=== PATIENT | female | born 1965 | race Caucasian/White ===

== ENCOUNTER 2020-03-30 12:38 | Emergency (ER) | payer MEDICARE, MEDICAID, SELFPAY ==
[2020-03-30 12:59] VITALS: BP 125/75; PULSE 60; RESP 16; TEMP 36.9; O2SAT 100; BMI 19.8
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
[2020-03-30 13:38] VITALS: BP 119/78; PULSE 63; RESP 16; O2SAT 99
[2020-03-30] MEDS: HYDROcodone-acetaminophen 7.5-325 mg Tablet 1 TAB PO (13:38)
[2020-03-30] MEDS: ketorolac 60 mg/2 mL INJ IM (13:39)
[2020-03-30 14:54] VITALS: BP 138/76; PULSE 55; RESP 16; O2SAT 100
== END 2020-03-30 15:13 | disposition home or self-care (01) ==
PROVIDERS: Emergency Provider Nurse Practitioner Family
DX: M54.5 Low back pain (principal)
CPT/HCPCS: 12345; 72131; 96372; 99281; 99283; J1885

== ENCOUNTER → 2020-05-18 09:21 | Outpatient (BNVA) | payer MEDICARE, MEDICAID, SELFPAY | PROVIDERS: Visit Provider Nurse Practitioner | DX: F41.9 Anxiety disorder, unspecified (principal); E03.9 Hypothyroidism, unspecified; R53.83 Other fatigue; E55.9 Vitamin D deficiency, unspecified | CPT/HCPCS: 80053; 80061; 81000; 82306; 82607; 84439; 84443; 84481; 85025; 86140 ==

== ENCOUNTER 2020-06-28 08:37 | Outpatient (CLI) | payer MEDICARE, MEDICAID, SELFPAY ==
--- NOTE | 2020-06-28 10:00 | CT_ITS ---
WS: [id number] CT ABDOMEN AND PELVIS NONCONTRAST HISTORY: increased AST and ALT TECHNIQUE: Imaging performed through the abdomen and pelvis. Coronal and sagittal reformats are submi tted. All CT scans at [facility] use at least one of these dose optimization techniques: automated exposure control; mA and/or kV adjustment per patient size (includes targeted exams where d ose is matched to clinical indication); or iterative reconstruction. DLP: 205.68 mGy.cm COMPARISON: 12/20/2008 Lower thorax: Lung bases are clear. Normal heart. Oral contrast present in the distal esophagus. Liver: Mild hepatic steatosis. No nodules. Liver is also mildly enlarged which may be a Indira's lobe as it extends nearly to the iliac crest. No bile duct dilatation. Gallbladder: Normal gallbladder. Pancreas: Normal size and attenuation. Normal pancreatic duct. No pancreatitis or mass. Spleen: Normal. Adrenal glands: Normal. No mass. Right kidney: Normal size kidney with no mass or hydronephrosis. Left kidney: Normal size kidney with no mass or hydronephrosis. Aorta: Mild atherosclerosis abdominal aorta with no aneurysm. No free fluid, intraperitoneal air or significant lymphadenopathy. GI tract: Mild diffuse constipation. No obstruction. The appendix is poorly visualized. There is no e vidence for appendicitis. No significant diverticular disease. Abdominal wall: Negative. No hernia. Pelvis: Normal. Osseous structures: L4 anterolisthesis by 9.7 mm with facet joint arthritis. Severe disc space narrow ing and desiccation at L4-5. CT/CT abdomen pelvis wo con [id number] IMPRESSION: 1. Moderate constipation. No obstruction or acute inflammatory process. 2. No renal stones or obstructions. 3. Severe degenerative disc disease at L4-5 with L4 anterolisthesis by 9.7 mm.
--- NOTE | 2020-06-28 11:00 | US_ITS ---
WS: [id number] THYROID ULTRASOUND HISTORY: hypothyroid COMPARISON: None available. Right lobe: 1.5 cm x 0.5 cm x 0.5 cm. Volume: 0.2 cm3. Very small hypoechoic thyroid. No nodule. Left lobe: 2.1 cm x 0.4 cm x 0.6 cm. Volume: 0.2 cm3. Very small hypoechoic thyroid. No nodules. Isthmus: 0.2 cm. US/US thyroid [id number] IMPRESSION: Small shrunken thyroid. Consistent with diagnosis of hypothyroidism. No nodules identified.
== END 2020-06-28 08:38 | disposition home or self-care (01) ==
PROVIDERS: PCP Nurse Practitioner; Visit Provider Nurse Practitioner
DX: E03.9 Hypothyroidism, unspecified (principal); R63.4 Abnormal weight loss; K59.00 Constipation, unspecified; M51.36 Other intervertebral disc degeneration, lumbar region
CPT/HCPCS: 74176; 76536

== ENCOUNTER → 2020-09-19 14:00 | Outpatient (BNVA) | payer MEDICARE, MEDICAID, SELFPAY | PROVIDERS: PCP Nurse Practitioner; Visit Provider Nurse Practitioner Family | DX: E03.9 Hypothyroidism, unspecified (principal) | CPT/HCPCS: 84439; 84443; 84481 ==

== ENCOUNTER → 2020-12-22 14:20 | Outpatient (BNVA) | payer MEDICARE, MEDICAID, SELFPAY | PROVIDERS: PCP Nurse Practitioner; Visit Provider Nurse Practitioner | DX: E03.9 Hypothyroidism, unspecified (principal); E55.9 Vitamin D deficiency, unspecified; N95.2 Postmenopausal atrophic vaginitis | CPT/HCPCS: 80053; 80061; 82306; 84439; 84443; 84481; 85025 ==

== ENCOUNTER 2021-02-15 13:00 | Outpatient (CLI) | payer MEDICARE, MEDICAID, SELFPAY ==
--- NOTE | 2021-02-15 13:30 | MM_ITS ---
WS: [id number] BILATERAL DIGITAL SCREENING MAMMOGRAPHY WITH CAD CLINICAL INFORMATION: Z12.39 - Encounter for other screening for malignant neoplasm of breast HISTORY: Screening mammogram. No current complaints. COMPARISON: December 03, 2008 TECHNIQUE: Bilateral CC and MLO views. FINDINGS: The breasts are composed of heterogeneous fibroglandular density tissue, which can limit the detectio n of small underlying mass lesions. No suspicious mass, asymmetry, calcifications, or architectural d istortion. No evidence of malignancy. MM/[place] [id number] IMPRESSION: BI-RADS: 1-Negative FOLLOW UP: 1 Year Follow-up Recommend return to annual screening mammography.
--- NOTE | 2021-02-15 13:57 | XR_ITS ---
WS: [id number] DEXA (DUAL ENERGY X-RAY ABSORPTIOMETRY) Bone mineral density was performed using a [employer] machine. HISTORY: Z78.0 - Asymptomatic menopausal state COMPARISON: None available. Lumbar spine BMD (L1-L4): 0.922 g/cm2 T score: -2.2 Z score: -0.6 Total hip BMD: Left: 0.830 g/cm2. T score: -1.4 Z score: -0.2 Right: 0.851 g/cm2. T score: -1.2 Z score: 0.0 10 year probability of a major osteoporotic fracture is 7%. Mild curvature lumbar spine. XR/XR DEXA axial skeleton* [id number] IMPRESSION: OSTEOPENIA based upon the WHO classification for females.
== END 2021-02-15 13:01 | disposition home or self-care (01) ==
LOC: RADSHAW 13:03
PROVIDERS: PCP Nurse Practitioner; Visit Provider Nurse Practitioner
DX: Z12.31 Encounter for screening mammogram for malignant neoplasm of breast (principal); Z78.0 Asymptomatic menopausal state; M85.89 Other specified disorders of bone density and structure, multiple sites
CPT/HCPCS: 77067; 77080

== ENCOUNTER → 2021-06-19 11:17 | Outpatient (BNVA) | payer MEDICARE, MEDICAID, SELFPAY | PROVIDERS: PCP Nurse Practitioner; Visit Provider Nurse Practitioner | DX: E03.9 Hypothyroidism, unspecified (principal); E07.9 Disorder of thyroid, unspecified | CPT/HCPCS: 80053; 84439; 84443; 84481; 85025 ==

== ENCOUNTER → 2021-11-15 11:45 | Outpatient (BNVA) | payer MEDICARE, MEDICAID, SELFPAY | PROVIDERS: PCP Nurse Practitioner; Visit Provider Nurse Practitioner | DX: E03.9 Hypothyroidism, unspecified (principal); R53.83 Other fatigue | CPT/HCPCS: 80053; 84439; 84443; 84481; 85025 ==

== ENCOUNTER → 2022-03-21 16:35 | Outpatient (BNVA) | payer MEDICARE, MEDICAID, SELFPAY | PROVIDERS: PCP Nurse Practitioner; Visit Provider Nurse Practitioner | DX: E03.9 Hypothyroidism, unspecified (principal); E78.2 Mixed hyperlipidemia; R13.10 Dysphagia, unspecified; Z86.79 Personal history of other diseases of the circulatory system; R63.4 Abnormal weight loss | CPT/HCPCS: 80053; 80061; 83721; 84439; 84443; 84481; 85025 ==

== ENCOUNTER → 2022-05-08 13:19 | Outpatient (BNVA) | payer MEDICARE, MEDICAID, SELFPAY | PROVIDERS: PCP Family Medicine; Referring Provider Otolaryngology; Visit Provider Internal Medicine | DX: E03.9 Hypothyroidism, unspecified (principal); E78.2 Mixed hyperlipidemia; N95.1 Menopausal and female climacteric states; Z86.79 Personal history of other diseases of the circulatory system | CPT/HCPCS: 99204 ==

== ENCOUNTER 2022-05-18 08:49 | Outpatient (CLI) | payer MEDICARE, MEDICAID, SELFPAY ==
--- NOTE | 2022-05-18 08:59 | CT_ITS ---
WS: [id number] CT NECK WITH CONTRAST HISTORY: PAIN IN THROAT, DYSPHAGIA, OROPHARYNGEAL PHASE, abnormal WT LOSS TECHNIQUE: Contiguous 5 mm axial images are performed through the neck with intravenous contrast. Sag ittal and coronal reformats are also submitted. All CT scans at [facility] use at least one o f these dose optimization techniques: automated exposure control; mA and/or kV adjustment per patient size (includes targeted exams where dose is matched to clinical indication); or iterative reconstruc tion. CONTRAST: CONTRAST: Omnipaque 350; 75 mL IV. DLP: 157.36 mGy.cm COMPARISON: None available. Nasopharynx, oropharynx, hypopharynx and larynx are unremarkable. No soft tissue masses or abnormal e nhancement. Torus tubarius and fossa of Rosenmuller and parapharyngeal fat are normal. No significant lymphadenopathy is identified. 0 No osseous abnormalities. Visualized portions of the skull base demonstrate no abnormalities. Orbits and globes are within norm al limits. No soft tissue masses. Visualized paranasal sinuses and mastoid air cells are normal. Lung apices are clear. CT/CT neck w con* [id number] IMPRESSION: Unremarkable neck CT. No neck mass or adenopathy.
--- NOTE | 2022-05-18 08:59 | FL_ITS ---
WS: [id number] Exam: FL barium swallow [id number] Date/Time of Exam: 05/18/2022 9:18 AM Reason For Exam: PAIN IN THROAT, DYSPHAGIA, OROPHARYNGEAL PHASE, ABN WT LOSS Fluoroscopy time: 1min 31.700612ldp minutes # of spot films: 9 Swallowing function at the level of oropharynx was normal. The esophagus is smooth in contour. No eso phageal mass or stricture. Normal motility. The esophagus is not displaced. No hiatal hernia. No obvi ous reflux identified during fluoroscopy. FL/FL barium swallow [id number] IMPRESSION: 1. Unremarkable barium swallow.
[2022-05-18] MEDS: iohexol 350 mg/mL 100 mL Btl IV (09:11)
== END 2022-05-18 08:50 | disposition home or self-care (01) ==
LOC: RAD 08:50
PROVIDERS: PCP Family Medicine; Visit Provider Otolaryngology
DX: R07.0 Pain in throat (principal); R13.12 Dysphagia, oropharyngeal phase; R63.4 Abnormal weight loss
CPT/HCPCS: 70491; 74220

== ENCOUNTER → 2022-05-22 13:07 | Outpatient (BNVA) | payer MEDICARE, MEDICAID, SELFPAY | PROVIDERS: PCP Family Medicine; Visit Provider Internal Medicine Cardiovascular Disease | DX: R07.9 Chest pain, unspecified (principal); E78.2 Mixed hyperlipidemia; K21.9 Gastro-esophageal reflux disease without esophagitis; I20.9 Angina pectoris, unspecified; J38.1 Polyp of vocal cord and larynx; E03.9 Hypothyroidism, unspecified; F41.9 Anxiety disorder, unspecified; Z87.891 Personal history of nicotine dependence | CPT/HCPCS: 99204 ==

== ENCOUNTER → 2022-06-05 13:12 | Outpatient (BNVA) | payer MEDICARE, MEDICAID, SELFPAY | PROVIDERS: PCP Family Medicine; Visit Provider Specialist | DX: R07.0 Pain in throat (principal); R13.12 Dysphagia, oropharyngeal phase | CPT/HCPCS: 80048; 85025 ==

== ENCOUNTER → 2022-07-02 14:58 | Outpatient (BNVA) | payer MEDICARE, MEDICAID, SELFPAY | PROVIDERS: PCP Family Medicine; Visit Provider Internal Medicine | DX: R63.0 Anorexia (principal); E03.9 Hypothyroidism, unspecified; E78.2 Mixed hyperlipidemia; N95.1 Menopausal and female climacteric states; A04.8 Other specified bacterial intestinal infections; Z86.79 Personal history of other diseases of the circulatory system; Z87.891 Personal history of nicotine dependence; Z68.1 Body mass index [BMI] 19.9 or less, adult | CPT/HCPCS: 99214 ==

== ENCOUNTER 2022-07-25 08:58 | Outpatient (CLI) | payer MEDICARE, MEDICAID, SELFPAY ==
--- NOTE | 2022-07-25 | ECG_ITS ---
[facility] Test Date: 2022-07-25 Pat Name: Sulema Castillo Department: Room: Gender: Female Advertising Internship: : 1965 Requested By: Yen Ryan Order Number: [id number] Qamar MD: Yen Ryan M.D. Interpretive Statements NAME OF STUDY: EXERCISE SESTAMIBI STRESS TEST INDICATION: Chest Pain; Family hx of CAD Baseline blood pressure of 132/91 mm Hg, heart rate of 55 beats per minute and oxygen saturation of 96%. EKG showed sinus bradycardia with normal ST-Ts. The patient exercised for 8 minutes and 30 seconds on a [standard [facility] protocol]. Patient attained a maximum heart rate of 141 beats per minute( 87 % of the maximum predicted heart rate) with a blood pressure at the peak exercise of 173/84 mm Hg and oxygen saturation of 98%. The EKG at the peak exercise revealed 1/2-[address] depression in infero-lateral leads. Patient did [not have any chest pain or any significant arrhythmis with the exercise. During the recovery phase, there were no new changes. Blood pressure at the end of the recovery phase was 150/75 mm Hg with a heart rate of 71 beats per minute and oxygen saturation of 98%. CONCLUSION: 1. Equivocal EKG response to treadmill exercise. EKG at the peak exercise revealed 1/2-[address] depression in infero-lateral leads. 2. No exercise-induced chest pain or cardiac arrhythmia. 3. Excellent exercise tolerance, attained a maximum of 10.2 METs. 4. Baseline hypertension with normal response to exercise. 5. Perfusion scan will be documented separately]. Electronically Signed On 07-30-2022 22:47:47 HARDWARE ENGINEER by Yen Ryan M.D. [id number]
[2022-07-25 09:05] VITALS: BMI 19.3
--- NOTE | 2022-07-25 09:08 | NMCV_ITS ---
NM emy perf SPECT r/s* [id number] Sulema Castillo Age: 57 Gender: F : 1965 Exam Date: 07/25/2022 09:08 Ordering Phys: Yen Ryan MD ([email or web address]) Technologist: LUANA Bonilla Exam Location: [facility] Indications: CHEST PAIN STRESS TEST Please see separate stress test report in [facility] for full findings IMAGE PROTOCOL Rest/Stress 1 Exercise Day Radiopharmaceutical Dose (mCi) Administration Site Administered by Rest: Tc-99m 8.4 IV LUANA Mcgill Sestamibi Stress:Tc-99m 26.1 IV LUANA Mcgill Sestamibi Rest: 25-Jul-2022 60 Discovery 630 Stress: 25-Jul-2022 30 Discovery 630 Radiopharmaceutical was injected at 85 % maximum heart rate. Images obtained in supine and prone position. SPECT RESULTS Technical Quality: Excellent Raw Data Analysis: Normal Image Corrections: No attenuation or motion correction applied Summed Stress Score: 0 Summed Rest Score: 0 Summed Difference Score: 0 PERFUSION FINDINGS SPECT images demonstrate homogeneous tracer distribution throughout the myocardium. FUNCTIONAL RESULTS (calculated via Gated SPECT) Stress Image LV EF (%): 91 Stress EDV (mL):75 TID: 0.85 Stress ESV (mL):7 FUNCTIONAL FINDINGS: The left ventricle is normal in size. Transient Ischemia Dilatation of 0.85. There is hyperdynamic left ventricular global systolic function. The left ventricular ejection fraction is normal with a value of 91%. There is hyperdynamic left ventricular wall thickening. IMPRESSIONS 1. Myocardial perfusion imaging is normal. 2. Overall left ventricular systolic function is hyperdynamic without regional wall motion abnormalities,LVEF=91%. 3. EKG portion of the study will be reported separately. Yen Ryan MD (Electronically Signed) Final Date: 27 July 2022 12:33 S
[2022-07-25 12:06] VITALS: BP 145/84; PULSE 72
== END 2022-07-25 08:59 | disposition home or self-care (01) ==
LOC: CDL 09:02
PROVIDERS: PCP Family Medicine; Visit Provider Internal Medicine Cardiovascular Disease
DX: R07.9 Chest pain, unspecified (principal)
CPT/HCPCS: 36415; 78452; 93017; A9500

== ENCOUNTER → 2022-11-01 13:31 | Outpatient (BNVA) | payer MEDICARE, MEDICAID, SELFPAY | PROVIDERS: PCP Family Medicine; Visit Provider Internal Medicine | DX: E03.9 Hypothyroidism, unspecified (principal); E78.2 Mixed hyperlipidemia; N95.1 Menopausal and female climacteric states; A04.8 Other specified bacterial intestinal infections; Z86.79 Personal history of other diseases of the circulatory system; Z79.890 Hormone replacement therapy | CPT/HCPCS: 99214 ==

== ENCOUNTER → 2022-12-07 11:31 | Outpatient (BNVA) | payer MEDICARE, MEDICAID, SELFPAY | PROVIDERS: PCP Family Medicine; Referring Provider Internal Medicine; Visit Provider Internal Medicine | DX: E03.9 Hypothyroidism, unspecified (principal) | CPT/HCPCS: 84439; 84443 ==

== ENCOUNTER → 2022-12-12 14:39 | Outpatient (BNVA) | payer MEDICARE, MEDICAID, SELFPAY | PROVIDERS: PCP Family Medicine; Visit Provider Internal Medicine | DX: R63.0 Anorexia (principal); E03.9 Hypothyroidism, unspecified; Z86.79 Personal history of other diseases of the circulatory system; E78.2 Mixed hyperlipidemia; N95.1 Menopausal and female climacteric states; A04.8 Other specified bacterial intestinal infections; Z68.1 Body mass index [BMI] 19.9 or less, adult; Z79.890 Hormone replacement therapy | CPT/HCPCS: 99214 ==

== ENCOUNTER → 2023-01-08 15:53 | Outpatient (BNVA) | payer MEDICARE, MEDICAID, SELFPAY | PROVIDERS: PCP Family Medicine; Visit Provider Nurse Practitioner Family | DX: M79.674 Pain in right toe(s) (principal); L03.031 Cellulitis of right toe; L97.509 Non-pressure chronic ulcer of other part of unspecified foot with unspecified severity | CPT/HCPCS: 73630; 80053; 85025; 87070 ==

== ENCOUNTER 2023-01-09 08:45 | Inpatient (IN) | payer MEDICARE, MEDICAID, SELFPAY ==
[2023-01-09] VITALS (14 sets, daily range): BP systolic 98–155; BP diastolic 60–84; PULSE 64–83; RESP 15–18; TEMP 36.1–37.3; O2SAT 92–100; BMI 19.3
--- NOTE | 2023-01-09 09:46 | CT_ITS ---
WS: [id number] NONCONTRAST CT RIGHT FOOT TECHNIQUE: Noncontrast CT RIGHT foot with coronal and sagittal reformatted images. CLINICAL INFORMATION: 3rd digit, abscess, cellulitis, r/o osteo no trauma COMPARISON: None. DLP: 104.[address] scans at [facility] use at least one of these dose optimization techniques: automated e xposure control; mA and/or kV adjustment per patient size (includes targeted exams where dose is matc hed to clinical indication); or iterative reconstruction. FINDINGS: Diffuse soft tissue edema RIGHT foot compatible with cellulitis. No drainable abscess or fluid collec tion. No evidence of osteomyelitis involving the 3rd digit. No drainable abscess or fluid collection. Normal anatomic alignment. No acute fractures. Normal ankle mortise. Normal medial and lateral malleolus. Normal talar dome. CT/CT foot RT w con [id number] IMPRESSION: 1. Diffuse cellulitis involving the RIGHT foot. 2. No evidence of drainable abscess or fluid collection. No evidence of osteom yelitis involving the 3rd digit. 3. No other acute findings.
--- NOTE | 2023-01-09 09:49 | ED_ITS ---
HPI - Extremity Problem General: Chief complaint: Extremity Injury, Lower Stated complaint: right foot pain Time Seen by Provider: 01/09/23 09:36 History of Present Illness: Patient presents to the ER with complaints of right third digit toe pain. Patient states approximately 3 days ago she noticed a little red spot on the underside of this area. Patient was seen in the clinic on Saturday given a prescription for an antibiotic that she did not get filled. Patient was seen again on the clinic today for worsening swelling and pain and they sent her directly over here to be evaluated. Patient's toe is severely swollen purple and blue and exquisitely tender to the touch. MD Complaint: extremity pain (Third digit right toe pain with swelling into the foot.) Onset (ago): day(s) (3 days ago) Pain Consistency: constant Relieving factors: nothing Exacerbating factors: range of motion, weight bearing and walking Associated symptoms: Reports no associated symptoms; Deny chest pain or fever(s) Review of Systems General: Reports: 10 or more systems reviewed and unremarkable except in HPI and below Const: Denies: fever(s), chills or body aches Eyes: Denies: change in vision or photophobia ENMT: Denies: throat pain or odynophagia Card: Denies: chest pain, palpitations or irregular heart rhythm Resp: Denies: dyspnea, productive cough, non-productive cough or chest congestion GI: Denies: abdominal pain, nausea, vomiting or diarrhea : Denies: flank pain, difficulty voiding or dysuria Musc: Denies: neck pain PFSH ED PFSH: Medical History Adult hypothyroidism Anxiety Appetite absent Hearing loss of both ears History of angina Hyperlipidemia, mixed Surgical History History of section History of colonoscopy 2014 at [facility] History of ear surgery left ear cyst History of hysterectomy with Left ovary removed Family History Mother Myocardial infarction Hypertension Family/Other Hx of CABG Mother and 6 siblings all had open heart surgery Hypertension Other Cancer Heart disease Hyperlipidemia Social History Smoking and tobacco status: former smoker Second hand smoke exposure: No Smoking risk assessment/counseling performed?: No Alcohol intake: never Desire information about alcohol rehabilitation?: No Counseling given: No Substance/Drug Use: never Desire information about substance/drug rehabilitation?: No Counseling given: No Adopted: No Caregiver/support person: No Lives independently: Yes Household members: spouse Housing: House Marital status: Number of children: 2 service: No Current occupational status: disabled Do you think of yourself as: Straight/Heterosexual Current gender identity: Female Physical Exam Const: COMMON NORMALS: no acute distress, average body habitus, patient oriented x3, no limitations, healthy appearing, alert and well nourished HENMT: COMMON NORMALS: normocephalic, atraumatic, hearing grossly normal bilaterally, external ears normal, Normal external nose present and moist oral mucous membranes HEAD & SCALP: normocephalic and atraumatic NOSE: Normal external nose present EXTERNAL EAR: Yes external ears normal Eye: COMMON NORMALS: Equal, round and reactive pupils present, EOMs intact bilaterally, conjunctivae normal and no scleral icterus CONJUNCTIVA: Yes conjunctivae normal PUPIL: Yes Equal, round and reactive pupils present Neck/C-Spine: COMMON NORMALS: no JVD Chest: COMMONS NORMALS: normal inspection of the chest and normal palpation of entire chest wall Resp: COMMON NORMALS: normal respiratory effort, No retractions, No use of accessory muscles and clear to auscultation bilaterally AUSCULTATION: clear to auscultation bilaterally Cardio: COMMON NORMALS: no JVD, regular rate, regular rhythm, S1 normal heart sound present and S2 normal heart sound present RATE: regular rate RHYTHM: regular rhythm HEART SOUNDS: S1 normal heart sound present and S2 normal heart sound present GI: COMMON NORMALS: Normal to inspection, nondistended, normoactive bowel sounds present Extremity: OTHER: Right foot swollen and erythematous. Right third digit very swollen purple and blue in nature and very tender to palpate. Neuro: COMMON NORMALS: patient oriented x3 SENSORIUM/ORIENTATION: Yes alert Course Vital Signs: Vital signs: Vital Signs Temperature 98.1 F 01/09/23 09:16 Pulse Rate 74 01/09/23 09:16 Blood Pressure 155/84 01/09/23 09:16 Pulse Oximetry 97 01/09/23 09:16 Oxygen Delivery Me thod Room Air 01/09/23 09:16 MDM - Extremity (Nontraumatic) Medical Decision Making Patient presents to the ER with complaints of right third toe pain and swelling and infection. Patient seen her PCP on Saturday and then again today she did not get her antibiotics filled but her PCP sent her over here for further evaluation. Lab work was obtained which revealed a white count of 15.5 CT scan of the foot with contrast did not show any nayan abscess or osteomyelitis, just cellulitis. Patient was given a dose of clindamycin and vancomycin in the ER. Dr. Turner was consulted who agreed to accept the patient in admission for IV antibiotics. Differential Diagnosis Likely cellulitis; Unlikely herpes zoster, gout or superficial thrombophlebitis Medical Records I reviewed the patient's medical records. Lab Data I reviewed the patient's lab results. 01/09/23 10:08 01/09/23 10:[address] 01/09/23 09:46 IMPRESSION: 1. Diffuse cellulitis involving the RIGHT foot. 2. No evidence of drainable abscess or fluid collection. No evidence of osteomyelitis involving the 3rd digit. 3. No other acute findings. Laboratory Results WBC 15.5 10^3/uL (4.0-10.0) H 01/09/23 10:08 RBC 4.05 10^6/uL (4.1-5.3) L 01/09/23 10:08 Hgb 12.3 g/dL (11.5-15.3) 01/09/23 10:08 Hct 37.7 % (37.0-47.0) 01/09/23 10:08 MCV 93.1 fl (81-99) 01/09/23 10:08 MCH 30.4 pg (28.0-34.0) 01/09/23 10:08 MCHC 32.6 g/dL (30.0-36.0) 01/09/23 10:08 RDW 13.2 % (12.1-15.1) 01/09/23 10:08 Plt Count 542 10^3/cmm (130-400) H 01/09/23 10:08 MPV 8.0 fL (7.4-10.4) 01/09/23 10:08 Neut % (Auto) 82.4 % 01/09/23 10:08 Lymph % (Auto) 8.8 % 01/09/23 10:08 Ritchie % (Auto) 7.8 % 01/09/23 10:08 Eos % (Auto) 0.2 % 01/09/23 10:08 Baso % (Auto) 0.2 % 01/09/23 10:08 Neut # (Auto) 12.74 10^3/uL (1.8-7.7) H 01/09/23 10:08 Lymph # (Auto) 1.4 10^3/uL (0.8-4.8) 01/09/23 10:08 Ritchie # (Auto) 1.2 10^3/uL (0.2-0.9) H 01/09/23 10:08 Eos # (Auto) 0.0 10^3/uL (0.0-0.8) 01/09/23 10:08 Baso # (Auto) 0.0 10^3/uL (0.0-0.1) 01/09/23 10:08 Nucleated RBC % (auto) 0 % 01/09/23 10:08 Nucleated RBCs # 0.0 /100WBC 01/09/23 10:08 ESR 22 mm/hr (0-15) H 01/09/23 10:08 Sodium 135 mmol/L (136-145) L 01/09/23 10:08 Potassium 3.3 mmol/L (3.5-5.1) L 01/09/23 10:08 Chloride 91 mmol/L (98-107) L 01/09/23 10:08 Carbon Dioxide 30 mmol/L (22-29) H 01/09/23 10:08 Anion Gap 17.3 (5-19) 01/09/23 10:08 BUN 22 mg/dL (6-20) H 01/09/23 10:08 Creatinine 0.8 mg/dL (0.5-0.9) 01/09/23 10:08 GFR Calculation 73.7 mL/min (90-130) L 01/09/23 10:08 Glucose 88 mg/dL (65-115) 01/09/23 10:08 Calculated Osmolality 283 mOsm/kg (285-295) L 01/09/23 10:08 Lactate 1.6 mmol/L (0.5-2.2) 01/09/23 10:08 Calcium 9.4 mg/dL (8.5-10.5) 01/09/23 10:08 Total Bilirubin 0.3 mg/dL (0.15-1.2) 01/09/23 10:08 AST 15 U/L (0-32) 01/09/23 10:08 ALT 14 U/L (0-33) 01/09/23 10:08 Alkaline Phosphatase 84 U/L (35-105) 01/09/23 10:08 C-Reactive Protein 75.7 mg/L (0.0-4.9) H 01/09/23 10:08 Total Protein 8.2 g/dL (6.6-8.7) 01/09/23 10:08 Albumin 4.5 g/dL (3.5-5.2) 01/09/23 10:08 Globulin 3.7 g/dL (1.3-4.6) 01/09/23 10:08 Procalcitonin 0.07 ng/mL (0-0.5) 01/09/23 10:08 Discharge Plan Discharge Patient Disposition: Admitted As Inpatient Clinical Impression: Cellulitis of third toe of right foot Condition: Stable Prescriptions: No Action estradiol 0.01 % (0.1 mg/gram) cream 2 g vaginal .2 times week Qty: 42.5 2RF Ensure High Protein Liquid See Rx Instructions PO .2 times day Qty: 5688 5RF Rx Instructions: 1 PO .2 times day; hydrocodone-acetaminophen 10-325 mg tablet 1 tab PO Q8H PRN nitroglycerin 0.4 mg tablet, sublingual 0.4 mg sublingual Q5M PRN (Reason: chest pain) Qty: 30 3RF Rx Instructions: do not exceed 3 doses per episode levothyroxine 100 mcg tablet 100 mcg PO DAILY Qty: 90 0RF ketorolac 30 mg/mL solution 30 mg IM ONCE Qty: 1 0RF clindamycin HCl 300 mg capsule 300 mg PO TID Qty: 30 0RF ibuprofen 800 mg tablet 800 mg PO TID PRN (Reason: pain) Qty: 30 0RF alendronate [Fosamax] 70 mg tablet 70 mg PO .weekly Qty: 4 2RF pantoprazole 40 mg tablet,delayed release (DR/EC) 40 mg PO DAILY paroxetine HCl 40 mg tablet 40 mg PO DAILY 28 mg iron- 800 mcg Tablet 1 tab PO DAILY melatonin 10 mg Tablet 10 mg PO BEDTIME PRN (Reason: Sleep) cyclobenzaprine 10 mg tablet 10 mg PO TID PRN Rx Instructions: pt states she only takes 1 tab at bedtime Referrals: Melo Anderson Jr, DO [Primary Care Provider] - Coding Level of Care Code ED Radio Frequency Design Engineer for Lyly Ratliff
[2023-01-09 10:24] LABS: Basophils % 0.2 %; Eosinophils % 0.2 %; Hematocrit 37.7 % (37.0-47.0); Hemoglobin 12.3 g/dL (11.5-15.3); Lymphocytes # 1.4 10^3/uL (0.8-4.8); Lymphocytes % 8.8 %; Mean Corpuscular HGB Conc 32.6 g/dL (30.0-36.0); Mean Corpuscular Hemoglobin 30.4 pg (28.0-34.0); Mean Corpuscular Volume 93.1 fl (81-99); Monocytes # 1.2 10^3/uL (0.2-0.9); Monocytes % 7.8 %; Neutrophils # 12.74 10^3/uL (1.8-7.7); Neutrophils % 82.4 %; Nucleated Red Blood Cells % 0 %; Platelet Count 542 10^3/cmm (130-400); Red Blood Count 4.05 10^6/uL (4.1-5.3); Red Cell Distribution Width 13.2 % (12.1-15.1); White Blood Count 15.5 10^3/uL (4.0-10.0)
[2023-01-09 10:31] LABS: Erythrocyte Sedimentation Rate 22 mm/hr (0-15)
[2023-01-09] MEDS: ketorolac 30 mg/mL INJ IVP (10:36)
[2023-01-09] MEDS: iohexol 350 mg/mL 500 mL Btl (per mL) IV (10:40)
[2023-01-09 10:47] LABS: Alanine Aminotransferase 14 U/L (0-33); Albumin Level 4.5 g/dL (3.5-5.2); Alkaline Phosphatase 84 U/L (35-105); Anion Gap 17.3 (5-19); Aspartate Amino Transferase 15 U/L (0-32); Blood Urea Nitrogen 22 mg/dL (6-20); C Reactive Protein 75.7 mg/L (0.0-4.9); Calcium 9.4 mg/dL (8.5-10.5); Carbon Dioxide 30 mmol/L (22-29); Chloride 91 mmol/L (98-107); Globulin 3.7 g/dL (1.3-4.6); Glomerular Filtration Rate 73.7 mL/min (90-130); Glucose 88 mg/dL (65-115); Lactate (Lactic Acid level) 1.6 mmol/L (0.5-2.2); Osmolality Calculated 283 mOsm/kg (285-295); Potassium 3.3 mmol/L (3.5-5.1); Sodium 135 mmol/L (136-145); Total Bilirubin 0.3 mg/dL (0.15-1.2); Total Protein 8.2 g/dL (6.6-8.7)
[2023-01-09 10:53] LABS: Procalcitonin 0.07 ng/mL (0-0.5)
[2023-01-09] MEDS: clindamycin 600 MG/50 ML PREMIX 100 MG IV (11:23)
--- NOTE | 2023-01-09 12:16 | P.HP_ITS ---
Providers/Chief Complaint Admitting Physician: Avinash Turner MD Primary Care Provider: Melo Anderson Jr, DO Chief Complaint: right foot pain History of Present Illness Sulema Castillo is a 57 year old female presenting to the emergency department with complaints of right third toe pain, swelling, and infection. She thinks this started about Saturday. No fevers at home but has had swelling and redness, up into her foot over the last 24 hours on a great deal more pain. The toe has changed colors in the last 24 hours as well. Was seen yesterday given given prescription for antibiotic but has not yet filled it. Denies any trauma. Denies any history of heart or lung conditions, or any difficulties with surgery. Last p.o. intake around 8 AM. Review of Systems General: Reports: 10 or more systems reviewed and unremarkable except in HPI and below Const: Denies: fever(s) or chills Card: Denies: chest pain Resp: Denies: dyspnea GI: Denies: hematochezia or melena Medications/Allergies Home Medications Medication Instructions Recorded Confirmed Last Taken Type melatonin 10 mg tablet 10 mg PO BEDTIME PRN Sleep 03/30/20 01/09/23 Unknown History pantoprazole 40 mg tablet,delayed 40 mg PO DAILY 03/30/20 01/09/23 01/09/23 History release paroxetine HCl 40 mg tablet 40 mg PO BEDTIME 03/30/20 01/09/23 01/08/23 History vit no.95-ferrous 1 tab PO DAILY 03/30/20 01/09/23 01/08/23 History fumarate 28 mg-folic acid 800 mcg tablet () estradiol 0.01% (0.1 mg/gram) 2 g vaginal .2 times week #42.5 06/21/21 01/09/23 Unknown Rx vaginal cream grams cyclobenzaprine 10 mg tablet 10 mg PO TID PRN Muscle Spasm 05/22/22 01/09/23 Unknown History hydrocodone 10 mg-acetaminophen 1 tab PO Q8H PRN Pain 05/22/22 01/09/23 Unknown History 325 mg tablet nitroglycerin 0.4 mg sublingual 0.4 mg sublingual Q5M PRN chest 05/22/22 01/09/23 Unknown Rx tablet pain #30 tabs levothyroxine 100 mcg tablet 100 mcg PO DAILY #90 tabs 12/12/22 01/09/23 04/03/08 Rx alendronate 70 mg tablet (Fosamax) 70 mg PO Q7D 01/09/23 01/09/23 Unknown History food supplemt, lactose-reduced 1 ea PO BID PRN CALORIES 01/09/23 01/09/23 Unknown History (Ensure High Protein oral liquid) Allergies Allergy/AdvReac Type Severity Reaction Status Date / Time No Known Allergies Allergy Verified 01/09/23 09:21 PFSH Acute PFSH: Medical History Adult hypothyroidism Anxiety Appetite absent Hearing loss of both ears History of angina Hyperlipidemia, mixed Surgical History History of section History of colonoscopy 2013 at [facility] [place] History of ear surgery left ear cyst History of hysterectomy with Left ovary removed Family History Mother Myocardial infarction Hypertension Family/Other Hx of CABG Mother and 6 siblings all had open heart surgery Hypertension Other Cancer Heart disease Hyperlipidemia Social History Smoking and tobacco status: former smoker Second hand smoke exposure: No Smoking risk assessment/counseling performed?: No Alcohol intake: never Desire information about alcohol rehabilitation?: No Counseling given: No Substance/Drug Use: never Desire information about substance/drug rehabilitation?: No Counseling given: No Adopted: No Caregiver/support person: No Lives independently: Yes Household members: spouse Housing: House Marital status: Number of children: 2 service: No Current occupational status: disabled Do you think of yourself as: Straight/Heterosexual Current gender identity: Female Vitals/I&O/Wt Last Vital Signs Temp 98.1 F 01/09/23 09:16 Pulse 74 01/09/23 09:16 BP 155/84 01/09/23 09:16 Pulse Ox 97 01/09/23 09:16 O2 Del Method Room Air 01/09/23 09:16 Weight last 48 hrs Weight 43.545 kg Physical Exam Narrative: General exam is a conversive white female in no distress HEENT: Atraumatic normocephalic. Pupils equally round. Oropharynx clear. Neck is supple no lymphadenopathy thyromegaly Cardiovascular regular rate and rhythm without murmur, no S3 or S4 Lungs clear no wheezing or crackles Abdomen is soft nontender positive bowel sounds. No obvious organomegaly exam is deferred Extremities no cyanosis clubbing or edema on the left. A few excoriations are noted dorsally. On the right there is edema, erythema into the ankle. The right third toe appears cyanotic and dusky. I cannot get good refill. It is significantly edematous, and exuding some pus. Dorsalis pedis and posterior tib pulses are palpable on the side. Skin see findings above Neuro no focal deficits Data 01/09/23 10:08 01/09/23 10:08 Other Labs: LFTs are normal CRP 76 Lactate 1.6 Calcium 9.4 Procalcitonin was checked and 0.07 X-ray demonstrated edema no fracture and I reviewed this as well Foot CT which I reviewed as well demonstrates edema. Reading says no osteomyelitis Nuclear stress test performed July 2022 demonstrated no reversible ischemia Micro: Microbiology 01/09/23 10:08 Blood Culture - Preliminary Blood SPECIMEN COLLECTED 01/09/23 10:16 Blood Culture - Preliminary Blood SPECIMEN COLLECTED A&P Assessment and plan (1) Cellulitis of third toe of right foot: Patient with significant cellulitis of the right foot, with what appears to be a gangrenous right third toe. No history of trauma the patient can remember. White blood cell count is elevated. She does not appear septic. I am worried about how fast the infection is progressing, and the viability of the right third toe. I discussed this in detail with the patient and her daughter. N.p.o. for potential surgery I contacted podiatry, and discussed the case with them. They are consulting. Arrange for ABIs Initiate vancomycin and Zosyn Blood cultures have been done Tissue culture will be obtained by podiatry I discussed with her, and her daughter risks and benefits of surgery. There were no direct contraindications. I know podiatry has done this as well. Patient has no history of coronary disease, no chest discomfort, no reaction to anesthesia, and a normal nuclear stress test July 2022 Attestations Medical Necessity Statement*: Will need greater than 2 midnight stay for evaluation and treatment of cellulitis of the right third toe, with what appears to be gangrene present, and cellulitis progressed up the right leg to the ankle. Diagnoses Cellulitis of third toe of right foot L03.031 Time Spent (min) 42
--- NOTE | 2023-01-09 12:48 | P.CONIM_ITS ---
Providers/Reason For Consult Consulting Physician/Specialty*: Fritz Villa D.P.M. Reason for Consult*: Cellulitis right foot Primary Care Provider: Melo Anderson Jr, DO History of Present Illness History of Present Illness Sulema Castillo is a 57 year old female presents to the emergency department with pain, redness, swelling and foul-smelling drainage from her right third toe, she has a sore that is weeping at the top of her right third toe also at the bottom within the sulcus of her right third toe. Patient denies being diabetic. Denies any immunocompromised state. History of hypothyroidism. Her daughter is bedside. They first noticed some swelling and minor redness this past 01/06/2023, looked like a splinter, had minimal redness at that time. States that the swelling and redness increased Saturday and Saturday and then rapidly advanced this morning with dark blue and purple color changes, increased pain and purulent drainage. Is unsure of the underlying cause, denies any obvious puncture wound, denies any insect bite, denies stubbing her toe. Patient denies nicotine use. Patient denies any subjective nausea, vomiting, fever, chills, shortness of breath or chest pain. Review of Systems General: Reports: 10 or more systems reviewed and unremarkable except in HPI and below Const: Denies: fever(s) or chills Eyes: Denies: change in vision Card: Denies: chest pain or palpitations Resp: Denies: dyspnea or productive cough GI: Denies: abdominal pain, nausea or vomiting : Denies: flank pain Musc: Reports: extremity swelling, joint stiffness and deformity Skin/Breast: Reports: erythema, sores, changes in skin color, dry skin, nail changes and change in hair Neuro: Reports: difficulty walking; Denies: numbness in extremities or sensory changes Psych: Denies: suicidal ideation Endo: Denies: change in body appearance Jose A/Lymph: Denies: tender lymph nodes Medications/Allergies Home Medications Medication Instructions Recorded Confirmed Last Taken Type melatonin 10 mg tablet 10 mg PO BEDTIME PRN Sleep 03/30/20 01/09/23 Unknown History pantoprazole 40 mg tablet,delayed 40 mg PO DAILY 03/30/20 01/09/23 01/09/23 History release paroxetine HCl 40 mg tablet 40 mg PO BEDTIME 0701/09/23 01/08/23 History vit no.95-ferrous 1 tab PO DAILY 03/30/20 01/09/23 01/08/23 History fumarate 28 mg-folic acid 800 mcg tablet () estradiol 0.01% (0.1 mg/gram) 2 g vaginal .2 times week #42.5 06/21/21 01/09/23 Unknown Rx vaginal cream grams cyclobenzaprine 10 mg tablet 10 mg PO TID PRN Muscle Spasm 05/22/22 01/09/23 Unknown History hydrocodone 10 mg-acetaminophen 1 tab PO Q8H PRN Pain 05/22/22 01/09/23 Unknown History 325 mg tablet nitroglycerin 0.4 mg sublingual 0.4 mg sublingual Q5M PRN chest 05/22/22 01/09/23 Unknown Rx tablet pain #30 tabs levothyroxine 100 mcg tablet 100 mcg PO DAILY #90 tabs 12/12/22 01/09/23 01/09/23 Rx alendronate 70 mg tablet (Fosamax) 70 mg PO Q7D 01/09/23 01/09/23 Unknown History food supplemt, lactose-reduced 1 ea PO BID PRN CALORIES 01/09/23 01/09/23 Unknown History (Ensure High Protein oral liquid) Allergies Allergy/AdvReac Type Severity Reaction Status Date / Time No Known Allergies Allergy Verified 01/09/23 09:21 PFSH Acute PFSH: Medical History Adult hypothyroidism Anxiety Appetite absent Hearing loss of both ears History of angina Hyperlipidemia, mixed Surgical History History of section History of colonoscopy 2013 at [facility] [place] History of ear surgery left ear cyst History of hysterectomy with Left ovary removed Family History Mother Myocardial infarction Hypertension Family/Other Hx of CABG Mother and 6 siblings all had open heart surgery Hypertension Other Cancer Heart disease Hyperlipidemia Social History Smoking and tobacco status: former smoker Second hand smoke exposure: No Smoking risk assessment/counseling performed?: No Alcohol intake: never Desire information about alcohol rehabilitation?: No Counseling given: No Substance/Drug Use: never Desire information about substance/drug rehabilitation?: No Counseling given: No Adopted: No Caregiver/support person: No Lives independently: Yes Household members: spouse Housing: House Marital status: Number of children: 2 service: No Current occupational status: disabled Do you think of yourself as: Straight/Heterosexual Current gender identity: Female Vitals/I&O/Wt Last Vital Signs Temp 98.1 F 01/09/23 09:16 Pulse 74 01/09/23 09:16 BP 155/84 01/09/23 09:16 Pulse Ox 97 01/09/23 09:16 O2 Del Method Room Air 01/09/23 09:16 Weight last 48 hrs Weight 96 lb Physical Exam Narrative: GENERAL: Patient is alert and oriented ?3 and in no acute distress. The following is a focused right lower extremity exam. VASCULAR: Dorsalis pedis palpable. Posterior tibial artery is palpable. Capillary refill time less than 3 seconds to the distal tuft of the right hallux. Delayed capillary refill to the right third toe. Decreased pedal hair growth. Edema to the right forefoot extending to the midfoot. NEUROLOGICAL: Protective sensation is intact to the right lower extremity to light touch. DERMATOLOGICAL: Purple and dusky appearance to right third toe with significant edema, has purulent drainage both dorsally at the right third toe and plantarly within the sulcus. No soft tissue crepitus with palpation of the right foot. MUSCULOSKELETAL: Exquisite tenderness to palpation right third toe. Range of motion is guarded and unable to perform secondary to pain and guarding. No pain with right posterior calf squeeze. CARDIOVASCULAR: S1, S2, normal rate, normal rhythm. Dorsalis pedis and posterior tibial arteries palpable. LUNGS: Clear to auscltation, no use of acessory muscles, no crackles or wheezes. Data 01/09/23 10:08 01/09/23 10:08 Micro: Microbiology 01/09/23 10:08 Blood Culture - Preliminary Blood SPECIMEN COLLECTED 01/09/23 10:16 Blood Culture - Preliminary Blood SPECIMEN COLLECTED A&P Assessment and plan (1) Cellulitis of right foot: (2) Right foot pain: (3) Wound of right foot: Plan 57-year-old female presents with ischemic changes to the right third toe with mayen rrounding cellulitis and wound with purulent drainage. First signs of infection began on 01/06/2023 and then rapidly progressed this morning. On admission patient's white blood cell count was 15.5 ESR 22 CRP 75.5 mg/L X-ray taken 01/08/2023 right foot negative for soft tissue emphysema, negative for foreign body, negative for bony destruction or obvious signs of osteomyelitis CT scan right foot with contrast performed today significant for cellulitis to the right foot, no drainable abscess or fluid collection, no obvious osteomyelitis of the third digit. Clinically impressive ischemia, cellulitis and infected wound to the right third toe, unable to determine depth of the wound due to patient's pain and guarding, Patient was examined and evaluated, findings and treatment options were discussed with patient at length. Discussed salvage versus amputation of the right third toe. We will make efforts to preserve her toe this will require surgical debridement, deep cultures and antibiotic therapy. Currently starting on empiric IV antibiotics. Patient is requesting a amputation of her right third toe, states that she is concerned that it may ascend into her foot and jeopardize her foot and/or leg., I would like to start with the incision and debridement with the understanding that should intraoperative findings necessitate amputation given the extent of infection that she is on board with this and will be consented for this procedure in the event that that it is indicated. Patient has been n.p.o. since yesterday. We will remain n.p.o. in preparation for surgery this afternoon. Consult Attestations Medical Necessity Statement: I reviewed at length with the patient, the risks, potential complications, benefits, alternatives, expectations, and typical outcomes associated with the surgery. The risks and potential complications were explained in detail, including but not limited to infection, wound dehiscence or soft tissue complications, bleeding and hematoma, chronic edema, neuritis or nerve damage producing numbness or chronic pain, CRPS, failure to relieve pain or worsening pain, thick / painful / unsightly scar, limited motion / stiffness, malposition, delayed union, malunion, or nonunion, fracture, reaction to implants, anesthetic complications, venous thromboembolism, and deformity recurrence. I discussed the notion of no regrets with the patient as it pertains to complications and outcomes. The patient seemed to understand the nature of the proposed care and required convalescence. They asked appropriate questions, answered to their satisfaction. They are aware no guarantees can be made as to a satisfactory outcome and they understand there may be other possible unforeseen complications or outcomes not listed here that will be treated accordingly if they arise. There were no written or implied guarantees given to the patient. They gave in formed consent to proceed. Coding Level of Care Code Acute Code for [facility] Diagnoses Cellulitis of right foot L03.115 Right foot pain M79.671 Wound of right foot S91.301A
[2023-01-09] MEDS: vancomycin 1,000 MG in sodium chloride 0.9% 250 ML 250 MG IV (12:56)
[2023-01-09] MEDS: HYDROmorphone 1 mg/mL INJ 1 mL 0.5 MG IVP (13:15)
--- NOTE | 2023-01-09 13:22 | P.ANESASSM_ITS ---
Pre-Anesthetic Assessment Height/Weight: Height 1.5 m Weight 43.545 kg Temp Pulse Resp BP Pulse Ox O2 Del Method 98.1 F 74 16 155/84 97 Room Air 01/09/23 09:16 01/09/23 09:16 01/09/23 13:15 01/09/23 09:16 01/09/23 09:16 01/09/23 13:08 Operation Date: 01/09/23 13:25 Proposed Procedures p Incision And Drainage right third toe vs amputation(Right) - Fritz Villa DPM s Possible right third toe(Right) - Fritz Villa DPM Familial anesthetic complications: none Was Beta Waldemar taken within 24 hours: N/A Was Clonidine taken within 24 hours: N/A Last intake: Intake Last Liquid Date 01/09/23 Last Liquid Time 09:30 Last Solid Date 01/08/23 Last Solid Time 19:00 Social No alcohol (h/o drinking) and No tobacco (h/o smoking) Exam alert, oriented x 3, clear to auscultation bilaterally and regular rate & rhythm Airway Submandibular: within normal limits Cervical ROM: within normal limits Mallampati: Class II Dentition: false GI Gastroesophageal Reflux Disease Neuropsych Anxiety and Depression Anesthetic Plan ASA status: 3 Anesthesia: Choice Medications/Allergies Home Medications Medication Instructions Recorded Confirmed Last Taken Type melatonin 10 mg tablet 10 mg PO BEDTIME PRN Sleep 03/30/20 01/09/23 Unknown History pantoprazole 40 mg tablet,delayed 40 mg PO DAILY 03/30/20 01/09/23 01/09/23 History release paroxetine HCl 40 mg tablet 40 mg PO BEDTIME 03/30/20 01/09/23 01/08/23 History vit no.95-ferrous 1 tab PO DAILY 03/30/20 01/09/23 01/08/23 History fumarate 28 mg-folic acid 800 mcg tablet () estradiol 0.01% (0.1 mg/gram) 2 g vaginal .2 times week #42.5 06/21/21 01/09/23 Unknown Rx vaginal cream grams cyclobenzaprine 10 mg tablet 10 mg PO TID PRN Muscle Spasm 05/22/22 01/09/23 Unknown History hydrocodone 10 mg-acetaminophen 1 tab PO Q8H PRN Pain 05/22/22 01/09/23 Unknown History 325 mg tablet nitroglycerin 0.4 mg sublingual 0.4 mg sublingual Q5M PRN chest 05/22/22 01/09/23 Unknown Rx tablet pain #30 tabs levothyroxine 100 mcg tablet 100 mcg PO DAILY #90 tabs 12/12/22 01/09/2312/16 Rx alendronate 70 mg tablet (Fosamax) 70 mg PO Q7D 01/09/23 01/09/23 Unknown History food supplemt, lactose-reduced 1 ea PO BID PRN CALORIES 01/09/23 01/09/23 Unknown History (Ensure High Protein oral liquid) Allergies Allergy/AdvReac Type Severity Reaction Status Date / Time No Known Allergies Allergy Verified 01/09/23 09:21 Current Medications Generic Name Dose Route Start Last Admin Trade Name Freq PRN Reason Stop Dose Admin Hydromorphone HCl 0.5 mg 01/09/23 13:02 01/09/23 13:15 Hydromorphone 1 Mg/Ml Inj 1 Ml IVP 0.5 mg ONCE PRN Administration For preop pain/anxiety [facility] Anesthesia Medical History Adult hypothyroidism Anxiety Appetite absent Hearing loss of both ears History of angina Hyperlipidemia, mixed Surgical History History of section History of colonoscopy [address] [facility] [place] History of ear surgery left ear cyst History of hysterectomy with Left ovary removed Family History Mother Myocardial infarction Hypertension Family/Other Hx of CABG Mother and 6 siblings all had open heart surgery Hypertension Other Cancer Heart disease Hyperlipidemia Social History Smoking and tobacco status: former smoker Second hand smoke exposure: No Smoking risk assessment/counseling performed?: No Alcohol intake: never Desire information about alcohol rehabilitation?: No Counseling given: No Substance/Drug Use: never Desire information about substance/drug rehabilitation?: No Counseling given: No Adopted: No Caregiver/support person: No Lives independently: Yes Household members: spouse Housing: House Marital status: Number of children: 2 service: No Current occupational status: disabled Do you think of yourself as: Straight/Heterosexual Current gender identity: Female Data Anesthesia 01/09/23 10:08 01/09/23 10:08 Short CBC 01/09/23 Range/Units 10:08 WBC 15.5 H (4.0-10.0) 10^3/uL Hgb 12.3 (11.5-15.3) g/dL Hct 37.7 (37.0-47.0) % MCV 93.1 (81-99) fl Plt Count 542 H (130-400) 10^3/cmm Neut % (Auto) 82.4 % Neut # (Auto) 12.74 H (1.8-7.7) 10^3/uL BMP 01/09/23 10:08 Sodium 135 L Potassium 3.3 L Chloride 91 L Carbon Dioxide 30 H BUN 22 H Creatinine 0.8 Glucose 88 Calcium 9.4 Liver Function 01/09/23 Range/Units 10:08 Total Bilirubin 0.3 (0.15-1.2) mg/dL AST 15 (0-32) U/L ALT 14 (0-33) U/L Alkaline Phosphatase 84 (35-105) U/L Albumin 4.5 (3.5-5.2) g/dL Coags 01/09/23 01/09/23 10:08 10:08 ESR 22 H C-Reactive Protein 75.7 H Microbiology 01/09/23 10:08 Blood Culture - Preliminary Blood SPECIMEN COLLECTED 01/09/23 10:16 Blood Culture - Preliminary Blood SPECIMEN COLLECTED Cardiac Studies: Sestamibi Stress Test (Cardiology) 07/25
--- NOTE | 2023-01-09 14:21 | PM.OP ---
Operative Report Date of procedure: January 09, 2023 Pre-op diagnosis: Cellulitis right foot. Wound exposed to tendon, right foot third toe. Post-op diagnosis: Cellulitis right foot Wound exposed tendon, right foot third toe. Post-op findings: Wound exposed the flexor tendon and extensor tendon to the right third toe. Wound did not extend to bone Procedure done: Incision and debridement down to tendon sheath, right foot. Implants: None Specimens removed/disposition: Deep tissue culture taken intraoperatively and sent to microbiology for Gram stain and culture. Tissue included subcutaneous tissue and tendon sheath. Pathology: None Surgeon: Fritz Villa D.P.M. Head Refrigerating Engineer: Shania Estimated blood loss: 5 5 IV fluids: 0 Urine output: 0 Complications: None Findings: Wound exposed to tendon right foot. Brief History: 57-year-old female presents with ischemic changes to the right third toe with surrounding cellulitis and wound with purulent drainage. First signs of infection began on 01/06/2023 and then rapidly progressed this morning. On admission patient's white blood cell count was 15.5 ESR 22 CRP 75.5 mg/L X-ray taken 01/08/2023 right foot negative for soft tissue emphysema, negative for foreign body, negative for bony destruction or obvious signs of osteomyelitis CT scan right foot with contrast performed today significant for cellulitis to the right foot, no drainable abscess or fluid collection, no obvious osteomyelitis of the third digit. Clinically impressive ischemia, cellulitis and infected wound to the right third toe, unable to determine depth of the wound due to patient's pain and guarding, Patient was examined and evaluated, findings and treatment options were discussed with patient at length.? Discussed salvage versus amputation of the right third toe.? We will make efforts to preserve her toe this will require surgical debridement, deep cultures and antibiotic therapy.? Currently starting on empiric IV antibiotics.? Patient is requesting a amputation of her right third toe, states that she is concerned that it may ascend into her foot and jeopardize her foot and/or leg.,? I would like to start with the incision and debridement with the understanding that should intraoperative findings necessitate amputation given the extent of infection that she is on board with this and will be consented for this procedure in the event that that it is indicated. Patient has been n.p.o. since yesterday.? We will remain n.p.o. in preparation for surgery this afternoon. Procedure: Under mild sedation the patient was brought to the operating room and remained on the gurney in supine position. A timeout was performed. Anesthesia was then administered by the anesthesia service. Local anesthesia was then injected by myself to the right foot consisting of 20 cc of 0.5% Marcaine plain and a right third ray block fashion. Well-padded pneumatic tourniquet was applied to the right ankle. The right lower extremity was scrubbed, prepped and draped utilizing normal aseptic technique. Right foot was elevated and tourniquet was then inflated to 250 mmHg. Attention was directed to the right third toe which had a ischemic appearing blue and grady undertone with purulent drainage both dorsally and plantarly from a full-thickness wound that probes to extensor tendon and flexor tendon. The wound was debrided sharply at the dorsal aspect of the right third toe utilizing pickups and a #15 blade down to tendon and the wound was then explored and noted to track proximally approximately 1.5 cm. Dorsal to this the skin was incised in a linear fashion with a fresh 15 blade and further debridement was performed, this was excisional and sharp in nature down to and including tendon sheath. The dorsal wound and surgical incision postdebridement measured 1.9 cm x 0.3 cm. Attention was then directed to the plantar aspect of the right third toe where a more worrisome wound was appreciated, this extended directly to flexor tendon both flexor brevis and longus were visualized. Excisional and sharp debridement was performed with pickups and a 15 blade followed by copious amounts of irrigation with sterile skin solution. Was able to express purulent drainage, had the appearance of liquefactive adipose tissue that was significantly devitalized. Further debridement down to tendon sheath at the plantar aspect of the right third toe followed by an incision through skin and subcutaneous tissue at the proximal portion of the wound extending 1.5 cm proximal near the level of the plantar aspect of the right third metatarsal phalangeal joint, the incision was carried down to viable tissue proximally. After further debridement and irrigation the right third toe wound plantarly measured 2.2 cm x 0.3 cm x 0.5 cm. The plantar wound in the dorsal wound did not probe to bone. Intraoperatively I did not observe any obvious signs of osteomyelitis. The incision both dorsally and plantarly were dressed with Adaptic, sterile 4 x 4's, Kerlix and Ventura wrap. Tourniquet was then deflated to the right ankle. A prompt hyperemic response was noted to digits 1, 2, 4 and 5 of the right foot. Delayed capillary refill to the right third toe was observed. Patient tolerated the procedure and anesthesia well and was transferred to the PACU with vital signs stable and vascular status intact. Following a period of postoperative monitoring she will be transferred to the [facility] to continue empiric IV antibiotics. We will monitor her clinical response to IV antibiotics and surgical debridement. Will await cultures for further antibiotic narrowing and selection. She may require amputation of the right third toe pending her response. Anticipate need for potential further surgical debridement versus amputation pending her clinical response.
--- NOTE | 2023-01-09 14:56 | ANE.PACU2 ---
Inpatient post-anesthesia follow up: Airway intact: Yes Vital signs: Temperature 98.0 F Pulse Rate 75 Respiratory Rate 15 Blood Pressure 98/60 Pulse Oximetry 95 Oxygen Delivery Me thod Room Air Oxygen Flow Rate 6 Fraction of Inspir ed Oxygen Hydration adequate: Yes Nausea and vomiting: No Pain level: 2 Mental status: Baseline
--- NOTE | 2023-01-09 15:14 | PC.PHAR ---
Addendum entered by Yung Palafox 01/09/23 15:15: Will schedule trough to be drawn before the 3rd dose. Will monitor renal function daily and adjust dose accordingly Original Note: Pharmacokinetic dosing service Date: Time: Objective: Patient: Floor: Age: 57 yo Serum creatinine: 0.8 mg/dL Height: 58.7 Inches Weight (kg): 43 IBW (kg): 44.51 Dosing wt(kg): 43 Estimated Creatinine clearance (ml/min): 52.0 CRCL method: Cockcroft and Gault using ibw(default). Drug selected: Vancomycin Loading dose (mg): Vd (liters): 30.1 (factor used: 0.7 L/kg) Santo (hr-1): 0.048 Half life (hrs): 14.44 CLvanco=?? 1.445 L/hr Recommended dose: 750 mg Interval: 18 hrs Infusion time (hrs): 1 Predicted peak (mcg/mL): 42.1 Predicted trough (mcg/mL): 18.62 Total body weight is being used for vancomycin dosing. Recommendations: Give Vancomycin 750 mg q 18 hrs with an expected Cpeak of 42.1 mcg/ml and an expected Ctrough of 18.62 mcg/ml AUC 0-24 /JULIENNE Data: JULIENNE 0.5 mcg/mL:?? AUC/JULIENNE:? 1384.1 JULIENNE 1.0 mcg/mL:?? AUC/JULIENNE:? 692.0 --------- JULIENNE 1.5 mcg/mL:?? AUC/JULIENNE:? 461.4 JULIENNE 2.0 mcg/mL:?? AUC/JULIENNE:? 346.0 Renal dosing of other antibiotics (review renal dosing of other medications and list guidelines here): Thank you for the consult, will continue to follow. Signature: Yung Palafox, PharmD
[2023-01-09] MEDS: heparin 5,000 unit/mL INJ 1 mL 5000 UNIT SUBCUT (16:10)
[2023-01-09] MEDS: potassium chloride ER 20 mEq Tablet 40 MEQ PO (16:10)
[2023-01-09] MEDS: piperacillin-tazobactam 3.375 GM in sodium chloride 0.9% (plus) 50 ML IV ×2 (16:10→23:13)
[2023-01-09] MEDS: sodium chloride 0.9% 1,000 ML 75 ML IV (16:11)
[2023-01-09] MEDS: oxyCODONE 5 mg IR Tab/Cap PO ×2 (16:54→23:11)
[2023-01-09] MEDS: morphine 4 mg/mL SDV 1 mL 2 MG IVP ×2 (19:10→23:11)
[2023-01-09] MEDS: PARoxetine 20 mg Tablet 40 MG PO (21:21)
[2023-01-10] VITALS (17 sets, daily range): BP systolic 110–148; BP diastolic 62–85; PULSE 63–85; RESP 15–20; TEMP 36.4–38.2; O2SAT 91–99
[2023-01-10] MEDS: morphine 4 mg/mL SDV 1 mL 2 MG IVP ×3 (02:57→19:28)
[2023-01-10] MEDS: heparin 5,000 unit/mL INJ 1 mL 5000 UNIT SUBCUT ×2 (02:59→15:19)
[2023-01-10] MEDS: vancomycin 750 MG in sodium chloride 0.9% 250 ML 250 MG IV ×2 (04:17→22:49)
[2023-01-10] MEDS: sodium chloride 0.9% 1,000 ML 75 ML IV ×2 (05:24→22:10)
[2023-01-10 06:28] LABS: Basophils % 0.4 %; Eosinophils % 0.2 %; Hematocrit 32.7 % (37.0-47.0); Hemoglobin 10.4 g/dL (11.5-15.3); Lymphocytes # 1.5 10^3/uL (0.8-4.8); Lymphocytes % 13.6 %; Mean Corpuscular HGB Conc 31.8 g/dL (30.0-36.0); Mean Corpuscular Hemoglobin 31.3 pg (28.0-34.0); Mean Corpuscular Volume 98.5 fl (81-99); Mean Platelet Volume 8.3 fL (7.4-10.4); Monocytes % 9.2 %; Neutrophils # 8.41 10^3/uL (1.8-7.7); Neutrophils % 76.2 %; Nucleated Red Blood Cells % 0 %; Platelet Count 385 10^3/cmm (130-400); Red Blood Count 3.32 10^6/uL (4.1-5.3); Red Cell Distribution Width 13.7 % (12.1-15.1)
--- NOTE | 2023-01-10 06:39 | P.PN_ITS ---
Subjective Subjective: Patient seen bedside this morning, she is accompanied by family who stayed overnight. She is tolerating regular diet, last ate dinner. Has had nothing for breakfast. Is comfortable when taking pain medication scheduled. She is 1 day status post incision and debridement right third toe. Patient denies any subjective nausea, vomiting, fever, chills, shortness of breath or chest pain. Vitals/I&O/Wt Last Vital Signs Temp 100.7 F H 01/10/23 03:30 Pulse 81 01/10/23 03:30 Resp 15 01/10/23 03:30 BP 136/68 01/10/23 03:30 Pulse Ox 92 01/10/23 03:30 O2 Del Method Room Air 01/10/23 03:30 O2 Flow Rate 6 01/09/23 20:00 01/09/23 01/09/23 01/10/23 14:59 22:59 06:59 Intake Total 360 / 360 900 / 1260 1291.25 / 2551.25 Output Total 5 / 5 Balance 355 / 355 900 / 1255 1291.25 / 2546.25 Weight last 48 hrs Weight 96 lb Physical Exam Narrative: GENERAL: Patient is alert and oriented ?3 and in no acute distress. The following is a focused right lower extremity exam. VASCULAR: Dorsalis pedis palpable. Posterior tibial artery is palpable. Capillary refill time less than 3 seconds to the distal tuft of the right hallux. Delayed capillary refill to the right third toe. Decreased pedal hair growth. Edema to the right forefoot extending to the midfoot. NEUROLOGICAL: Protective sensation is intact to the right lower extremity to light touch. DERMATOLOGICAL: Purple, great and ischemic right third toe. Right third toe has decreased skin temperature compared to adjacent toes. There is no purulence, improved erythema. MUSCULOSKELETAL: Exquisite tenderness to palpation right third toe. Range of motion is guarded and unable to perform secondary to pain and guarding. No pain with right posterior calf squeeze. Data 01/10/23 05:58 01/10/23 05:58 Micro: Microbiology 01/09/23 13:57 Gram Stain - Final Toe - Right Third 01/09/23 10:08 Blood Culture - Preliminary Blood SPECIMEN COLLECTED 01/09/23 10:16 Blood Culture - Preliminary Blood SPECIMEN COLLECTED A&P Assessment and plan (1) Cellulitis of right foot: (2) Right foot pain: (3) Wound of right foot: Plan 57-year-old female presents with ischemic changes to the right third toe with surrounding cellulitis and wound with purulent drainage. First signs of infection began on 01/06/2023 and then rapidly progressed this morning. On admission patient's white blood cell count was 15.5 ESR 22 CRP 75.5 mg/L X-ray taken 01/08/2023 right foot negative for soft tissue emphysema, negative for foreign body, negative for bony destruction or obvious signs of osteomyelitis CT scan right foot with contrast performed today significant for cellulitis to the right foot, no drainable abscess or fluid collection, no obvious osteo myelitis of the third digit. Patient is 1 day status post incision and debridement right third toe. Date of operation 01/09/2023. WBC trending down. Clinically her right third toe has declined, is more ischemic. Her right third toe has a dark bluish, purple and grady undertone and is cold compared to adjacent toes. No capillary refill appreciated clinically to the right third toe. Patient would like to proceed with right third toe amputation. She will remain n.p.o. this morning, based off of OR availability will go today, tentatively scheduled for 9:00 AM this morning. Discussed risks and benefits of third toe amputation, viable skin margins are of great concern. Planning on no tourniquet during the amputation to assess skin bleeding at the amputation site. Patient is agreeable and wishes to proceed. Continuing empiric IV antibiotics, cultures pending. Attestations Medical Necessity Statement*: Gangrene right third toe Coding Level of Care Code Acute Code for [facility] Diagnoses Cellulitis of right foot L03.115 Right foot pain M79.671 Wound of right foot S91.301A
[2023-01-10 06:41] LABS: Alanine Aminotransferase 11 U/L (0-33); Albumin Level 3.3 g/dL (3.5-5.2); Alkaline Phosphatase 69 U/L (35-105); Anion Gap 13.1 (5-19); Aspartate Amino Transferase 14 U/L (0-32); Blood Urea Nitrogen 11 mg/dL (6-20); Calcium 8.4 mg/dL (8.5-10.5); Carbon Dioxide 22 mmol/L (22-29); Chloride 101 mmol/L (98-107); Globulin 2.7 g/dL (1.3-4.6); Glomerular Filtration Rate 102.7 mL/min (90-130); Glucose 86 mg/dL (65-115); Osmolality Calculated 273 mOsm/kg (285-295); Potassium 4.1 mmol/L (3.5-5.1); Sodium 132 mmol/L (136-145); Total Bilirubin 0.2 mg/dL (0.15-1.2)
[2023-01-10] MEDS: piperacillin-tazobactam 3.375 GM in sodium chloride 0.9% (plus) 50 ML IV ×2 (07:47→15:19)
--- NOTE | 2023-01-10 09:01 | P.PN_ITS ---
Subjective Subjective: Pain under control. Going back to surgery this morning for amputation. Fever noted last night. Patient denies any shortness of breath. Medications: Reviewed: Yes Vitals/I&O/Wt Last Vital Signs Temp 98.9 F 01/10/23 08:26 Pulse 78 01/10/23 08:26 Resp 18 01/10/23 08:26 BP 141/85 01/10/23 08:26 Pulse Ox 93 01/10/23 08:26 O2 Del Method Room Air 01/10/23 08:26 O2 Flow Rate 6 01/09/23 20:00 01/09/23 01/10/23 01/10/23 22:59 06:59 14:59 Intake Total 900 / 1260 1291.25 / 2551.25 Balance 900 / 1255 1291.25 / 2546.25 Weight last 48 hrs Weight 43.545 kg Physical Exam Narrative: General exam no distress Neck is supple no lymphadenopathy thyromegaly Cardiovascular regular rate and rhythm without murmur, no S3 or S4 Lungs clear no wheezing or crackles Abdomen is soft nontender positive bowel sounds. No obvious organomegaly Extremities edema right ankle is better. Toe is cyanotic. Dressing in place. Data 01/10/23 05:58 01/10/23 05:58 Micro: Microbiology 01/09/23 13:57 Gram Stain - Final Toe - Right Third 01/09/23 10:08 Blood Culture - Preliminary Blood SPECIMEN COLLECTED 01/09/23 10:16 Blood Culture - Preliminary Blood SPECIMEN COLLECTED A&P Assessment and plan (1) Cellulitis of third toe of right foot: Patient with significant cellulitis of the right foot, with a gangrenous right third toe. No history of trauma the patient can remember. Cellulitis improved today Toe is more cyanotic despite debridement yesterday. Amputation planned today. Appreciate podiatry intervention. Await ABIs Continue vancomycin and Zosyn Blood cultures have been done Tissue culture obtained by podiatry is pending CBC, BMP tomorrow Plan Hyponatremia. Likely secondary to systemic illness. BMP tomorrow. Other medical problems as outlined in past medical history Full code Heparin for DVT prophylaxis Attestations Medical Necessity Statement*: Needs continued hospitalization for surgical intervention regarding the right th ird toe secondary to gangrene and a sending cellulitis. Diagnoses Cellulitis of third toe of right foot L03.031 Time Spent (min) 29
--- NOTE | 2023-01-10 09:48 | ANES.PAUD2 ---
Pre-Anesthetic Update Pre-Anesthetic Assessment: Date of Surgery/Procedure: 01/10/23 Proposed Procedure: Operation Date: 01/09/23 13:25 Proposed Procedures p Incision And Drainage right third toe vs amputation(Right) - Fritz Villa DPM s Possible right third toe(Right) - Fritz Villa DPM Operation Date: 01/10/23 09:00 Proposed Procedures p Amputation right third toe(Right) - Fritz Villa DPM Any changes to Pre-Anesthetic Assessment?: No Last Intake: Intake Last Liquid Date 01/09/23 Last Liquid Time 09:30 Last Solid Date 01/08/23 Last Solid Time 19:00 Labs Last 48hrs: Short CBC 01/09/23 01/10/23 Range/Units 10:08 05:58 WBC 15.5 H 11.0 H (4.0-10.0) 10^3/ uL Hgb 12.3 10.4 L (11.5-15.3) g/dL Hct 37.7 32.7 L (37.0-47.0) % MCV 93.1 98.5 D (81-99) fl Plt Count 542 H 385 (130-400) 10^3/c mm Neut % (Auto) 82.4 76.2 % Neut # (Auto) 12.74 H 8.41 H (1.8-7.7) 10^3/u L BMP 01/09/23 01/10/23 10:08 05:58 Sodium 135 L 132 L Potassium 3.3 L 4.1 Chloride 91 L 101 Carbon Dioxide 30 H 22 BUN 22 H 11 Creatinine 0.8 0.6 Glucose 88 86 Calcium 9.4 8.4 L Liver Function 01/09/23 01/10/23 Range/Units 10:08 05:58 Total Bilirubin 0.3 0.2 (0.15-1.2) mg/dL AST 15 14 (0-32) U/L ALT 14 11 (0-33) U/L Alkaline Phosphata se 84 69 (35-105) U/L Albumin 4.5 3.3 L (3.5-5.2) g/dL Coags 01/09/23 01/09/23 10:08 10:08 ESR 22 H C-Reactive Protein 75.7 H Vitals: Temperature 98.9 F 01/10/23 08:26 Temperature Source Temporal Artery S can 01/10/23 08:26 Pulse Rate 78 01/10/23 08:26 Respiratory Rate 18 01/10/23 08:26 Respiratory Effort Non-Labored 01/10/23 02:57 Respiratory Depth Normal 01/10/23 02:57 Respiratory Patter n Normal 01/10/23 02:57 Blood Pressure 141/85 01/10/23 08:26 Blood Pressure Sofya n 103 01/10/23 08:26 Pulse Oximetry 93 01/10/23 08:26 Oxygen Delivery Me thod Room Air 01/10/23 08:26 Oxygen Flow Rate 6 01/09/23 20:00 Exam: Pre-Anes Outpt Exam: alert, oriented x 3, clear to auscultation bilaterally and regular rate & rhythm Cardiac Studies: Sestamibi Stress Test (Cardiology) 07/25/22
--- NOTE | 2023-01-10 10:42 | P.OP_ITS ---
Operative Report Date of procedure: January 10, 2023 Pre-op diagnosis: Gangrene right third toe Post-op diagnosis: Gangrene right third toe Procedure done: Right third toe amputation at metatarsal phalangeal joint. Implants: None Specimens removed/disposition: None Pathology: Right third toe sent to pathology for gross Surgeon: Fritz Villa D.P.M. Shade Cloth Finisher: Kierra Estimated blood loss: 5 No tourniquet utilized IV fluids: 0 Urine output: 0 Complications: None Findings: Devitalized tissue at amputation margins, skin bleeding at amputation margins appreciated intraoperatively. Brief History: Patient under went incision and debridement to the right third toe yesterday 01/09/2023 secondary to gangrenous changes. Overnight her toe has become more ischemic has grady, dusky, blue appearance with decreased skin temperature. No capillary refill appreciated. Recommended right third toe amputation at the metatarsal phalangeal joint. Patient is agreeable wishes to proceed. Risks and clued but are not limited to pain, bleeding, numbness, infection, ascending infection require higher level amputation, surgical site dehiscence, need for antibiotic therapy and wound care therapy, altered gait, transfer pressure and transfer lesions. No guarantees written, expressed or implied. Procedure: Under mild sedation the patient was brought to the operating room and remained [place] the [place] in supine position. A timeout was performed. Anesthesia was then administered by the anesthesia service. Local anesthesia was injected by myself consisting of 25 cc of one-to-one mixture 1% lidocaine and 0.5% Marcaine plain in a right third ray block fashion. A well-padded pneumatic tourniquet was applied to the right ankle. This was not inflated for this procedure. The right lower extremity was scrubbed, prepped and draped utilizing normal aseptic technique. Attention was directed to the right third toe. The right third toe had no capillary refill, was cold and blue with dark dusky grady distal tuft. Vertical semielliptical incision was performed full-thickness down to joint at the right third metatarsal phalangeal joint and the right third toe was sharply disarticulated through the metatarsal phalangeal joint and passed from the operative field this was sent to pathology for gross. The incision site was irrigated with copious amounts of sterile skin solution. Devitalized tissue at the amputation margin was appreciated. Skin bleeding was appreciated intraoperatively. The second metatarsal head was viable had bright white appearance without changes in density or color. The incision was irrigated with copious amounts test and solution and dressed with saline wet-to-dry utilizing 4 x 4 gauze, Kerlix and Coban. Will require continuation of empiric antibiotics and a staged procedure for further debridement and primary delayed closure. We will plan on monitoring over the next 24 hours while on vancomycin and Zosyn, we will hope for primary delayed closure of indicated tomorrow morning at 7 AM 04/12/2023.
[2023-01-10] MEDS: oxyCODONE 5 mg IR Tab/Cap PO ×2 (11:59→22:08)
--- NOTE | 2023-01-10 12:33 | USCV_ITS ---
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
--- NOTE | 2023-01-10 15:26 | ANE.PACU2 ---
Inpatient post-anesthesia follow up: Airway intact: Yes Vital signs: Temperature 98.5 F Pulse Rate 78 Respiratory Rate 18 Blood Pressure 118/69 Pulse Oximetry 94 Oxygen Delivery Me thod Room Air Oxygen Flow Rate 4 Fraction of Inspir ed Oxygen Hydration adequate: Yes Nausea and vomiting: No Pain level: 2 Mental status: Baseline
[2023-01-10] MEDS: PARoxetine 20 mg Tablet 40 MG PO (20:27)
[2023-01-10 22:12] LABS: Vancomycin Trough 5.2 ug/mL (10-15)
--- NOTE | 2023-01-10 22:45 | PC.PHAR ---
Vanc trough dose change Vanc trough: 5.2 Current dose: 750 mg Q18H Plan: Change frequency to Q12H Will schedule new trough prior to 4th dose and reassess
[2023-01-11] VITALS (16 sets, daily range): BP systolic 87–143; BP diastolic 41–81; PULSE 64–77; RESP 16–18; TEMP 36.4–37.1; O2SAT 92–99
[2023-01-11] MEDS: piperacillin-tazobactam 3.375 GM in sodium chloride 0.9% (plus) 50 ML IV (00:11)
[2023-01-11] MEDS: morphine 4 mg/mL SDV 1 mL 2 MG IVP ×2 (00:17→10:55)
[2023-01-11] MEDS: heparin 5,000 unit/mL INJ 1 mL 5000 UNIT SUBCUT ×2 (02:17→14:10)
[2023-01-11] MEDS: oxyCODONE 5 mg IR Tab/Cap PO ×3 (04:02→14:09)
[2023-01-11 05:41] LABS: Basophils % 0.3 %; Eosinophils # 0.1 10^3/uL (0.0-0.8); Eosinophils % 1.4 %; Hematocrit 30.8 % (37.0-47.0); Hemoglobin 9.9 g/dL (11.5-15.3); Lymphocytes % 12.2 %; Mean Corpuscular HGB Conc 32.1 g/dL (30.0-36.0); Mean Corpuscular Hemoglobin 30.4 pg (28.0-34.0); Mean Corpuscular Volume 94.5 fl (81-99); Mean Platelet Volume 8.3 fL (7.4-10.4); Monocytes # 0.6 10^3/uL (0.2-0.9); Monocytes % 7.5 %; Neutrophils # 6.13 10^3/uL (1.8-7.7); Neutrophils % 78.1 %; Nucleated Red Blood Cells % 0 %; Platelet Count 367 10^3/cmm (130-400); Red Blood Count 3.26 10^6/uL (4.1-5.3); Red Cell Distribution Width 13.3 % (12.1-15.1); White Blood Count 7.9 10^3/uL (4.0-10.0)
[2023-01-11 05:59] LABS: Alanine Aminotransferase 9 U/L (0-33); Albumin Level 3.3 g/dL (3.5-5.2); Alkaline Phosphatase 57 U/L (35-105); Aspartate Amino Transferase 14 U/L (0-32); Blood Urea Nitrogen 7 mg/dL (6-20); Calcium 8.5 mg/dL (8.5-10.5); Carbon Dioxide 23 mmol/L (22-29); Chloride 101 mmol/L (98-107); Globulin 2.9 g/dL (1.3-4.6); Glomerular Filtration Rate 126.7 mL/min (90-130); Glucose 91 mg/dL (65-115); Osmolality Calculated 276 mOsm/kg (285-295); Sodium 134 mmol/L (136-145); Total Bilirubin 0.3 mg/dL (0.15-1.2); Total Protein 6.2 g/dL (6.6-8.7)
--- NOTE | 2023-01-11 06:09 | W.PM.OPSUD ---
Surgery/Procedure H&P Update DATE OF PROCEDURE: January 11, 2023 DATE H&P PERFORMED: 01/09/23 CHANGES TO PREVIOUS DOCUMENTATION: None PLANNED PROCEDURE: Operation Date: 01/09/23 13:25 Proposed Procedures p Incision And Drainage right third toe vs amputation(Right) - Fritz Villa DPM s Possible right third toe(Right) - Fritz Villa DPM Operation Date: 01/10/23 09:00 Proposed Procedures p Amputation right third toe(Right) - Fritz Villa DPM Operation Date: 01/11/23 07:00 Proposed Procedures p Primary delayed closure right foot(Right) - Fritz Villa DPM
--- NOTE | 2023-01-11 06:12 | PM.OP ---
Operative Report Date of procedure: January 11, 2023 Pre-op diagnosis: Gangrene right third toe Post-op diagnosis: Gangrene right third toe Status post right third toe amputation Post-op findings: Improved soft tissue Procedure done: Primary delayed closure right foot CPT code 60808 Implants: 3-0 Vicryl, 4-0 nylon Specimens removed/disposition: None Pathology: None Surgeon: Fritz Villa D.P.M. [employer] Supervisor: Shania Estimated blood loss: Less than 5 No tourniquet IV fluids: None Urine output: None Complications: None Findings: Improved soft tissue margins amputation site postdebridement. Brief History: Patient is a pleasant 57-year-old female presented with gangrenous right third toe, underwent incision and debridement without improvement, necessitated right third toe amputation due to the extent of soft tissue necrosis, vascular status was compromised of the right third toe, became ischemic secondary to infection. Patient presents for further debridement and potential primary delayed closure if appropriate. Risks include but are not limited to pain, bleeding, numbness, infection, surgical site dehiscence, transfer pressure, transfer lesions, need for antibiotic therapy, wound care and advanced bracing. Patient is n.p.o. since midnight, informed consent signed by patient and myself. I initialed the right lower extremity. No guarantees written, expressed or implied. Patient wishes to proceed. Procedure: Under mild sedation the patient was brought to the operating room and remained on the gurney in supine position. A timeout was performed. Anesthesia was then administered by the anesthesia service. Local anesthesia was injected by myself consisting of 20 cc of one-to-one mixture 1% lidocaine and 0.5's Marcaine plain in a right second ray block fashion. A well-padded pneumatic tourniquet was applied to the right ankle. This was not inflated during the procedure. The right lower extremity was scrubbed, prepped and draped utilizing normal aseptic technique. Attention was directed to the amputation site of the right third toe, hematoma was evacuated with saline flush. Pickups and 15 blade utilized for sharp excision of further devitalized tissue down to and including myofascial layer. Was able to visualize the second metatarsal head and had appropriate density and color without signs of necrosis. After sharp debridement no further devitalized tissue was appreciated. She had healthy bleeding at skin margins. The incision was irrigated with copious amounts of sterile skin solution. The incision measured 6.5 cm in length exposed bone. This was further irrigated and closed in a layered fashion. Myofascial layer and subcutaneous layer closed with 3-0 Vicryl. Skin closed with 4-0 nylon. The incision site was then dressed with Adaptic, sterile 4 x 4's, Kerlix and Coban. Patient tolerated the procedure and anesthesia well and was transferred to the PACU with vital signs stable and vascular status intact. Following a period of postoperative monitoring she will be transferred back to the [facility]. Patient is okay for discharge today from podiatry standpoint. She has scheduled follow-up next week 01/17/2023 at 8:00 AM. She is advised to elevate her right foot while resting. She is to heel touch only for transfers with a postop shoe. Greatly appreciate hospitalist for medical management during this hospitalization. Would appreciate recommendations from hospitalist on oral antibiotics at discharge. Would plan for 2 weeks of oral antibiotic regimen for soft tissue. Pain medication has been sent to [facility] to be taken judiciously as needed for pain outpatient.
[2023-01-11] MEDS: lidocaine 1% INJ 10 mL (per mL) 20 ML XX (07:11)
--- NOTE | 2023-01-11 07:23 | PC.NURSE ---
Pt arrived to PACU, O2 at 6L/min via simple mask. Dressing to right foot C/D/I, right toes p/w/d, cap refill <3 seconds, Right foot elevated on pillows.
[2023-01-11] MEDS: pantoprazole DR 40 mg Tablet PO (08:17)
--- NOTE | 2023-01-11 08:48 | P.DS_ITS ---
Discharge Providers Date of Admission: 01/09/23 14:21 Date of Discharge: January 11, 2023 Attending Provider at Admission: Avinash Turner MD Attending Provider at Discharge: Fritz Villa DPM Primary Care Provider: Melo Anderson Jr, DO Diagnoses at Discharge Discharge Diagnosis (1) Cellulitis of third toe of right foot: Status: Acute Reason for Visit Reason for Visit: right foot pain Hospital Course Hospital Course Sulema is a 57-year-old white female who presented to the hospital with cellulitis, and right third toe infection. There was concern she was systemically ill secondary to elevated white blood cell count. She eventually ran a fever as well. Blood cultures were obtained and she was started on broad- spectrum antibiotics consisting of vancomycin and Zosyn. Podiatry was consulted secondary to concern of nonviability of her right third toe. She went for an incision and drainage the first day. Tissue appeared more cyanotic the second day and she was taken for an amputation. Closure recurred on her third operative day January 11. On that day she had been afebrile for over 24 hours. Blood cultures were all negative. She has shown excellent response and cellulitis. Podiatry, as well as myself believe the patient can transition home on oral antibiotics. She will go on 14 days per the preference of podiatry, and their follow-up and wound care instructions will be given. She will follow-up with a primary care provider as well. She was instructed to return, for any signs of infection which were discussed in detail with her and her daughter including redness, increasing pain, increasing edema, significant drainage. A CAT scan was done during her course of hospital stay of her right foot which demonstrated no obvious osteomyelitis. ABIs were also done while inpatient, and were within normal limits. Physical Exam Narrative: General exam no distress Neck is supple Cardiovascular regular rate and rhythm, no murmur Lungs clear Abdomen is soft with positive bowel sounds Extremities no cyanosis clubbing. Trace edema right lower extremity. Dressing in place. Discharge Data Studies Completed and Pending Completed Studies During Hospitalization Category Date Time Status CT foot RT w con [id number] Stat Cat Scan 01/09/23 09:46 Completed CV ankle brachial index [id number] Routine Ultrasound 01/10/23 12:33 Completed Pending at discharge Category Date Time Status Abscess Culture and Gram Stain Routine Lab 01/09/23 13:57 Results Anaerobic Culture Routine Lab 01/09/23 13:57 Results Blood Culture Stat Lab 01/09/23 10:08 Results Pathology: Surgical [PTH] Routine Pth 01/10/23 10:29 Received Radiology Impressions Foot CT 01/09/23 09:46 IMPRESSION: 1. Diffuse cellulitis involving the RIGHT foot. 2. No evidence of drainable abscess or fluid collection. No evidence of osteomyelitis involving the 3rd digit. 3. No other acute findings. Laboratory Results WBC 7.9 10^3/uL (4.0-10.0) 01/11/23 05:09 RBC 3.26 10^6/uL (4.1-5.3) L 01/11/23 05:09 Hgb 9.9 g/dL (11.5-15.3) L 01/11/23 05:09 Hct 30.8 % (37.0-47.0) L 01/11/23 05:09 MCV 94.5 fl (81-99) 01/11/23 05:09 MCH 30.4 pg (28.0-34.0) 01/11/23 05:09 MCHC 32.1 g/dL (30.0-36.0) 01/11/23 05:09 RDW 13.3 % (12.1-15.1) 01/11/23 05:09 Plt Count 367 10^3/cmm (130-400) 01/11/23 05:09 MPV 8.3 fL (7.4-10.4) 01/11/23 05:09 Neut % (Auto) 78.1 % 01/11/23 05:09 Lymph % (Auto) 12.2 % 01/11/23 05:09 Mcintosh % (Auto) 7.5 % 01/11/23 05:09 Eos % (Auto) 1.4 % 01/11/23 05:09 Baso % (Auto) 0.3 % 01/11/23 05:09 Neut # (Auto) 6.13 10^3/uL (1.8-7.7) 01/11/23 05:09 Lymph # (Auto) 1.0 10^3/uL (0.8-4.8) 01/11/23 05:09 Mcintosh # (Auto) 0.6 10^3/uL (0.2-0.9) 01/11/23 05:09 Eos # (Auto) 0.1 10^3/uL (0.0-0.8) 01/11/23 05:09 Baso # (Auto) 0.0 10^3/uL (0.0-0.1) 01/11/23 05:09 Nucleated RBC % (auto) 0 % 01/11/23 05:09 Nucleated RBCs # 0.0 /100WBC 01/11/23 05:09 ESR 22 mm/hr (0-15) H 01/09/23 10:08 Sodium 134 mmol/L (136-145) L 01/11/23 05:09 Potassium 4.0 mmol/L (3.5-5.1) 01/11/23 05:09 Chloride 101 mmol/L (98-107) 01/11/23 05:09 Carbon Dioxide 23 mmol/L (22-29) 01/11/23 05:09 Anion Gap 14.0 (5-19) 01/11/23 05:09 BUN 7 mg/dL (6-20) 01/11/23 05:09 Creatinine 0.5 mg/dL (0.5-0.9) 01/11/23 05:09 GFR Calculation 126.7 mL/min (90-130) 01/11/23 05:09 Glucose 91 mg/dL (65-115) 01/11/23 05:09 Calculated Osmolality 276 mOsm/kg (285-295) L 01/11/23 05:09 Lactate 1.6 mmol/L (0.5-2.2) 01/09/23 10:08 Calcium 8.5 mg/dL (8.5-10.5) 01/11/23 05:09 Total Bilirubin 0.3 mg/dL (0.15-1.2) 01/11/23 05:09 AST 14 U/L (0-32) 01/11/23 05:09 ALT 9 U/L (0-33) 01/11/23 05:09 Alkaline Phosphatase 57 U/L (35-105) 01/11/23 05:09 C-Reactive Protein 75.7 mg/L (0.0-4.9) H 01/09/23 10:08 Total Protein 6.2 g/dL (6.6-8.7) L 01/11/23 05:09 Albumin 3.3 g/dL (3.5-5.2) L 01/11/23 05:09 Globulin 2.9 g/dL (1.3-4.6) 01/11/23 05:09 Procalcitonin 0.07 ng/mL (0-0.5) 01/09/23 10:08 Vancomycin Trough 5.2 ug/mL (10-15) L 01/10/23 21:38 Vitals Last Vital Signs Temp 98.4 F 01/11/23 07:58 Pulse 69 01/11/23 07:58 Resp 16 01/11/23 08:18 BP 103/62 01/11/23 07:58 Pulse Ox 92 01/11/23 07:58 O2 Del Method Room Air 01/11/23 07:38 O2 Flow Rate 6 01/11/23 07:33 Discharge Plan Discharge Patient Disposition: Home Condition: Stable Prescriptions: New hydrocodone-acetaminophen 5-325 mg tablet 1 tab PO Q4H PRN (Reason: pain) 7 Days Qty: 20 0RF amoxicillin-pot clavulanate 875-125 mg tablet 1 tab PO BID Qty: 14 0RF doxycycline monohydrate 100 mg capsule 100 mg PO BID 14 Days Qty: 28 0RF Continued estradiol 0.01 % (0.1 mg/gram) cream 2 g vaginal .2 times week Qty: 42.5 2RF hydrocodone-acetaminophen 10-325 mg tablet 1 tab PO Q8H PRN (Reason: Pain) nitroglycerin 0.4 mg tablet, sublingual 0.4 mg sublingual Q5M PRN (Reason: chest pain) Qty: 30 3RF Rx Instructions: do not exceed 3 doses per episode levothyroxine 100 mcg tablet 100 mcg PO DAILY Qty: 90 0RF pantoprazole 40 mg tablet,delayed release (DR/EC) 40 mg PO DAILY paroxetine HCl 40 mg tablet 40 mg PO BEDTIME PNV cmb#[id number] fumarate-FA [] 28 mg iron- 800 mcg Tablet 1 tab PO DAILY melatonin 10 mg Tablet 10 mg PO BEDTIME PRN (Reason: Sleep) cyclobenzaprine 10 mg tablet 10 mg PO TID PRN (Reason: Muscle Spasm) Fosamax 70 mg tablet 70 mg PO Q7D Rx Instructions: ON SUNDAYS Ensure High Protein Liquid 1 ea PO BID PRN (Reason: CALORIES) Discharge Orders: Discharge Order (Routine); Ordered 01/11/23 Ordered By: Avinash Turner Referrals: Monica Franklin,Melo Henry, DO [Primary Care Provider] - 4-7 days Discharge Diet: Advance as tolerated Discharge Activity: Limit activity as instructed Patient Instructions: Opioid Safety Activity Restrictions/Additional Instructions: Right foot care instructions from Dr. Villa: -Please keep your surgical dressing clean, dry and intact until your follow-up visit with Dr. Villa in podiatry clinic scheduled , 01/17/2023 at 8:00 AM. -Please elevate your right foot while resting. -Please reduce your activities and wear postop shoe with weight primarily on your right heel for transferring. -Anticipate right foot sutures to be removed 2 to 3 weeks from date of surgery and then increasing activities at that point. -Please take oral antibiotics as prescribed for the next 2 weeks -Hydrocodone 5/325 mg has been sent to [facility] to be taken judiciously as needed for pain every 4-[address] Villa with any postoperative questions or concerns. Call or text [phone] Patient's Health Concerns: Right foot infection Assessment: Cellulitis, right third toe infection Plan of Treatment: Amputation performed Continue antibiotics for 2 weeks Discharge Attestations Time Spent in Discharge Care*: greater than 30 min Quality Metrics Clinical Quality Measures [ No reported AMI, CVA or VTE this stay] Coding Level of Care Code 08966 Total time (in minutes) for Discharge: 36 Diagnoses Cellulitis of third toe of right foot L03.031
[2023-01-11] MEDS: sodium chloride 0.9% 1,000 ML 75 ML IV (10:48)
[2023-01-11] MEDS: vancomycin 750 MG in sodium chloride 0.9% 250 ML 250 MG IV (12:01)
--- NOTE | 2023-01-11 12:50 | ANES.PAUD2 ---
Pre-Anesthetic Update Pre-Anesthetic Assessment: Date of Surgery/Procedure: 01/11/23 Proposed Procedure: Operation Date: 01/09/23 13:25 Proposed Procedures p Incision And Drainage right third toe vs amputation(Right) - Fritz Villa DPM s Possible right third toe(Right) - Fritz Villa DPM Operation Date: 01/10/23 09:00 Proposed Procedures p Amputation right third toe(Right) - Fritz Villa DPM Operation Date: 01/11/23 07:00 Proposed Procedures p Primary delayed closure right foot(Right) - Fritz Villa DPM Any changes to Pre-Anesthetic Assessment?: No Last Intake: Intake Last Liquid Date 01/10/23 Last Liquid Time 23:00 Last Solid Date 01/10/23 Last Solid Time 17:30 Labs Last 48hrs: Short CBC 01/09/23 01/10/23 01/11/23 Range/Units 10:08 05:58 05:09 WBC 11.0 H 7.9 (4.0-10.0) 10^3/ uL Hgb 12.3 10.4 L 9.9 L (11.5-15.3) g/dL Hct 37.7 32.7 L 30.8 L (37.0-47.0) % MCV 93.1 98.5 D 94.5 (81-99) fl Plt Count 542 H 385 367 (130-400) 10^3/c mm Neut % (Auto) 76.2 78.1 % Neut # (Auto) 8.41 H 6.13 (1.8-7.7) 10^3/u L BMP 01/09/23 01/10/23 01/11/23 10:08 05:58 05:09 Sodium 135 L 132 L 134 L Potassium 4.1 4.0 Chloride 101 101 Carbon Dioxide 22 23 BUN 11 7 Creatinine 0.6 0.5 Glucose 86 91 Calcium 8.4 L 8.5 Liver Function 01/10/23 01/11/23 Range/Units 05:58 05:09 Total Bilirubin 0.2 0.3 (0.15-1.2) mg/dL AST 14 14 (0-32) U/L ALT 11 9 (0-33) U/L Alkaline Phosphata se 69 57 (35-105) U/L Albumin 3.3 L 3.3 L (3.5-5.2) g/dL Vitals: Temperature 98.4 F 01/11/23 12:00 Temperature Source Oral 01/11/23 07:58 Pulse Rate 64 01/11/23 12:00 Respiratory Rate 16 01/11/23 10:55 Respiratory Effort Spontaneous 01/11/23 10:55 Respiratory Depth Normal 01/11/23 10:55 Respiratory Patter n Normal 01/11/23 10:55 Blood Pressure 102/60 01/11/23 12:00 Blood Pressure Sofya n 74 01/11/23 12:00 Blood Pressure Pos ition Semi Fowlers 01/11/23 04:00 Pulse Oximetry 94 01/11/23 12:00 Oxygen Delivery Me thod Room Air 01/11/23 09:52 Oxygen Flow Rate 6 01/11/23 07:33 Exam: Pre-Anes Outpt Exam: alert, oriented x 3, clear to auscultation bilaterally and regular rate & rhythm Cardiac Studies: Sestamibi Stress Test (Cardiology) 07/25/22
--- NOTE | 2023-01-11 12:51 | ANE.PACU2 ---
Inpatient post-anesthesia follow up: Airway intact: Yes Vital signs: Temperature 98.4 F Pulse Rate 64 Respiratory Rate 16 Blood Pressure 102/60 Pulse Oximetry 94 Oxygen Delivery Me thod Room Air Oxygen Flow Rate 6 Fraction of Inspir ed Oxygen Hydration adequate: Yes Nausea and vomiting: No Pain level: 1 Mental status: Baseline
[2023-01-11] MEDS: cyclobenzaprine 10 mg Tablet PO (14:10)
== END 2023-01-11 15:00 | disposition home or self-care (01) | DRG 571 ==
LOC: ER 12:50 → OR 12:53 → MEDSURG 17:39
PROVIDERS: Admitting Provider Internal Medicine; Emergency Provider Emergency Medicine; PCP Family Medicine; Visit Provider Podiatrist Foot & Ankle Surgery
PROC: 0LBV0ZZ Excision of Right Foot Tendon, Open Approach (ICD-10-PCS; principal; 2023-01-09 13:05)
PROC: 0Y6T0Z0 Detachment at Right 3rd Toe, Complete, Open Approach (ICD-10-PCS; principal; 2023-01-10 09:00)
PROC: 0JBQ0ZZ Excision of Right Foot Subcutaneous Tissue and Fascia, Open Approach (ICD-10-PCS; CPT 13160; principal; 2023-01-11 07:00)
DX: L03.031 Cellulitis of right toe (principal); E87.1 Hypo-osmolality and hyponatremia; I96 Gangrene, not elsewhere classified; Z79.890 Hormone replacement therapy; Z79.891 Long term (current) use of opiate analgesic; E03.9 Hypothyroidism, unspecified; F41.9 Anxiety disorder, unspecified; H91.93 Unspecified hearing loss, bilateral; E78.2 Mixed hyperlipidemia; Z87.891 Personal history of nicotine dependence; S91.104A Unspecified open wound of right lesser toe(s) without damage to nail, initial encounter; X58.XXXA Exposure to other specified factors, initial encounter
CPT/HCPCS: 36415; 73630; 73701; 80053; 80202; 83605; 84145; 85025; 85651; 86140; 87040; 87070; 87075; 87077; 87186; 87205; 88305; 88311; 93922; 96365; 96367; 96372; 97760; 99285; J1100; J1170; J1644; J1885; J2250; J2270; J2405; J2543; J2704; J3010; J3370; J3490; J7030; J7050; L3260; Q9967

== ENCOUNTER → 2023-01-17 08:12 | Outpatient (BNVA) | payer MEDICARE, MEDICAID, SELFPAY | PROVIDERS: PCP Family Medicine; Visit Provider Podiatrist Foot & Ankle Surgery | DX: S98.131A Complete traumatic amputation of one right lesser toe, initial encounter (principal); X58.XXXA Exposure to other specified factors, initial encounter; Z86.79 Personal history of other diseases of the circulatory system | CPT/HCPCS: 99213 ==

== ENCOUNTER → 2023-01-24 08:09 | Outpatient (BNVA) | payer MEDICARE, MEDICAID, SELFPAY | PROVIDERS: PCP Family Medicine; Visit Provider Podiatrist Foot & Ankle Surgery | DX: Z47.81 Encounter for orthopedic aftercare following surgical amputation (principal); Z89.421 Acquired absence of other right toe(s); Z86.79 Personal history of other diseases of the circulatory system | CPT/HCPCS: 99024; 99213 ==

== ENCOUNTER → 2023-01-25 08:02 | Outpatient (BNVA) | payer MEDICARE, MEDICAID, SELFPAY | PROVIDERS: PCP Family Medicine; Visit Provider Internal Medicine | DX: E03.9 Hypothyroidism, unspecified (principal); R63.0 Anorexia | CPT/HCPCS: 84439; 84443; 84480 ==

== ENCOUNTER → 2023-01-28 13:30 | Outpatient (BNVA) | payer MEDICARE, MEDICAID, SELFPAY | PROVIDERS: PCP Family Medicine; Visit Provider Internal Medicine | DX: E03.9 Hypothyroidism, unspecified (principal); D64.9 Anemia, unspecified; R63.0 Anorexia; E78.2 Mixed hyperlipidemia; N95.1 Menopausal and female climacteric states; A04.8 Other specified bacterial intestinal infections; Z79.890 Hormone replacement therapy; Z68.1 Body mass index [BMI] 19.9 or less, adult | CPT/HCPCS: 99214 ==

== ENCOUNTER → 2023-03-28 16:16 | Outpatient (BNVA) | payer MEDICARE, MEDICAID, SELFPAY | PROVIDERS: PCP Family Medicine; Visit Provider Family Medicine | DX: R53.83 Other fatigue (principal) | CPT/HCPCS: 84439; 84443; 84481; 85025 ==

== ENCOUNTER 2023-04-21 18:44 | Emergency (ER) | payer MEDICARE, MEDICAID, SELFPAY ==
[2023-04-21 18:54] VITALS: BP 145/92; PULSE 73; RESP 18; TEMP 36.7; O2SAT 100; BMI 20.2
--- NOTE | 2023-04-21 19:25 | ED_ITS ---
HPI - Back Pain/Injury General: Chief Complaint: Back Pain/Injury Stated Complaint: Possible Kidney Stones Time Seen by Provider: 04/21/23 19:19 History of Present Illness: Ms. Castillo is a 58-year-old lady presenting to the emergency department for atraumatic right flank and back pain. Notes onset of symptoms woke her from sleep at about 2 AM. Since that time has been persistent and worsening. Mild radiation across her back. Denies other associated specific symptoms. She has tried home medications without any relief and finds it difficult to remain still due to pain. Denies history of kidney stones. No other specific changes in health, exacerbating, or alleviating factors identified. Onset (ago): hour(s) Timing: constant Quality: sharp Exacerbating factors: none Relieving factors: none Review of Systems General: Reports: 10 or more systems reviewed and unremarkable except in HPI and below PFSH ED PFSH: Medical History Adult hypothyroidism Anxiety Appetite absent Hearing loss of both ears History of angina Hyperlipidemia, mixed Surgical History History of section [place] [facility] [place] of ear surgery left ear cyst History of hysterectomy with Left ovary removed Family History Mother Myocardial infarction Hypertension Family/Other Hx of CABG Mother and 6 siblings all had open heart surgery Hypertension Other Cancer Heart disease Hyperlipidemia Social History Smoking and tobacco status: former smoker Second hand smoke exposure: No Smoking risk assessment/counseling performed?: No Alcohol intake: never Desire information about alcohol rehabilitation?: No Counseling given: No Substance/Drug Use: never Desire information about substance/drug rehabilitation?: No Counseling given: No Adopted: No Caregiver/support person: No Lives independently: Yes Household members: spouse Housing: House Marital status: Number of children: 2 service: No Current occupational status: disabled Do you think of yourself as: Straight/Heterosexual Current gender identity: Female Physical Exam Const: COMMON NORMALS: alert GENERAL APPEARANCE: cooperative and well developed HENMT: COMMON NORMALS: normocephalic and atraumatic HEAD & SCALP: normocephalic and atraumatic Eye: COMMON NORMALS: conjunctivae normal CONJUNCTIVA: Yes conjunctivae normal SCLERA: sclerae normal Neck/C-Spine: COMMON NORMALS: supple GENERAL: Yes trachea midline Resp: COMMON NORMALS: normal respiratory effort EFFORT & INSPECTION: Yes able to speak in complete sentences Cardio: COMMON NORMALS: regular rate and regular rhythm RATE: regular rate RHYTHM: regular rhythm GI: COMMON NORMALS: Soft to palpation PALPATION: Yes Soft to palpation, Yes Tenderness to palpation present (GI), No Guarding due to palpation present (GI) and No Rigid due to palpation Extremity: GENERAL: Yes normal exam except as noted and No edema Neuro: COMMON NORMALS: moves all extremities SENSORIUM/ORIENTATION: Yes alert and No Orientation impaired Psych: COMMON NORMALS: mental status grossly normal and Normal thought process present THOUGHT PROCESS: Normal thought process present Course Vital Signs: Vital signs: Vital Signs Temperature 98.1 F 04/21/23 18:54 Pulse Rate 91 04/21/23 21:19 Respiratory Rate 16 04/21/23 21:43 Blood Pressure 119/72 04/21/23 21:43 Pulse Oximetry 97 04/21/23 21:43 Oxygen Delivery Me thod Room Air 04/21/23 21:19 MDM - Back Pain/Injury Medical Decision Making 58-year-old lady presenting with flank pain. Uncomfortable appearing however nontoxic. No peritonitis. No significant hematologic or metabolic abnormalities. No evidence of hematur ia, mild UTI likely. CT with no acute findings to clearly end symptoms. Discussed with patient inc luding need for outpatient follow-up and repeat imaging. Improved with analgesia, muscle relaxer. Also given antibiotic. The results of ED evaluation were discussed with the patient including presc riptions and/or symptomatic cares (if applicable) including appropriate and responsible use, followup plan, and return precautions. The patient verbalized understanding and felt safe for discharge. Medical Records I reviewed the patient's medical records. Labs I reviewed the patient's lab results. 04/21/23 19:19 04/21/23 19:19 Radiology Impressions Abdomen/Pelvis CT 04/21/23 20:14 IMPRESSION: 1. No findings of urolithiasis to explain patient's flank pain. There is advanced degenerative change at the L4-L5 level which could contribute to neurogenic claudication and right greater than left radiculopathy. 2. There is mild prominence of the pancreatic duct with pancreas divisum morphology. Mass lesion in the pancreas is not appreciated. Consideration could be given to elective pancreas protocol MR to exclude mass lesion and serve as a baseline for future follow-up. Laboratory Results WBC 6.6 10^3/uL (4.0-10.0) 04/21/23 19:19 RBC 4.35 10^6/uL (4.1-5.3) 04/21/23 19:19 Hgb 13.4 g/dL (11.5-15.3) 04/21/23 19:19 Hct 40.5 % (37.0-47.0) 04/21/23 19:19 MCV 93.1 fl (81-99) 04/21/23 19:19 MCH 30.8 pg (28.0-34.0) 04/21/23 19:19 MCHC 33.1 g/dL (30.0-36.0) 04/21/23 19:19 RDW 13.5 % (12.1-15.1) 04/21/23 19:19 Plt Count 305 10^3/cmm (130-400) 04/21/23 19:19 MPV 8.3 fL (7.4-10.4) 04/21/23 19:19 Neut % (Auto) 69.8 % 04/21/23 19:19 Lymph % (Auto) 21.3 % 04/21/23 19:19 L[place] % (Auto) 6.9 % 04/21/23 19:19 Eos % (Auto) 1.1 % 04/21/23 19:19 Baso % (Auto) 0.6 % 04/21/23 19:19 Neut # (Auto) 4.62 10^3/uL (1.8-7.7) 04/21/23 19:19 Lymph # (Auto) 1.4 10^3/uL (0.8-4.8) 04/21/23 19:19 Loving # (Auto) 0.5 10^3/uL (0.2-0.9) 04/21/23 19:19 Eos # (Auto) 0.1 10^3/uL (0.0-0.8) 04/21/23 19:19 Baso # (Auto) 0.0 10^3/uL (0.0-0.1) 04/21/23 19:19 Nucleated RBC % (auto) 0 % 04/21/23 19:19 Nucleated RBCs # 0.0 /100WBC 04/21/23 19:19 Sodium 140 mmol/L (136-145) 04/21/23 19:19 Potassium 4.0 mmol/L (3.5-5.1) 04/21/23 19:19 Chloride 102 mmol/L (98-107) 04/21/23 19:19 Carbon Dioxide 25 mmol/L (22-29) 04/21/23 19:19 Anion Gap 17.0 (5-19) 04/21/23 19:19 BUN 13 mg/dL (6-20) 04/21/23 19:19 Creatinine 0.6 mg/dL (0.5-0.9) 04/21/23 19:19 GFR Calculation 102.3 mL/min (90-130) 04/21/23 19:19 Glucose 96 mg/dL (65-115) 04/21/23 19:19 Calculated Osmolality 290 mOsm/kg (285-295) 04/21/23 19:19 Calcium 9.9 mg/dL (8.5-10.5) 04/21/23 19:19 Total Bilirubin 0.2 mg/dL (0.15-1.2) 04/21/23 19:19 AST 20 U/L (0-32) 04/21/23 19:19 ALT 12 U/L (0-33) 04/21/23 19:19 Alkaline Phosphatase 80 U/L (35-105) 04/21/23 19:19 Total Protein 7.5 g/dL (6.6-8.7) 04/21/23 19:19 Albumin 4.6 g/dL (3.5-5.2) 04/21/23 19:19 Globulin 2.9 g/dL (1.3-4.6) 04/21/23 19:19 Lipase 27 U/L (13-60) 04/21/23 19:19 Urine Color Straw (Yellow) 04/21/23 19:40 Urine Appearance Hazy (CLEAR) A 04/21/23 19:40 Urine pH 6 (5-7) 04/21/23 19:40 Ur Specific [place] 1.010 (1.005-1.030) 04/21/23 19:40 Urine Protein Neg (Negative) 04/21/23 19:40 Urine Glucose (UA) Norm (Normal) 04/21/23 19:40 Urine Ketones Negative (Negative) 04/21/23 19:40 Urine Blood 2+ (Negative) H 04/21/23 19:40 Urine Nitrate Positive (Negative) H 04/21/23 19:40 Urine Bilirubin Neg (Negative) 04/21/23 19:40 Urine Urobilinogen Norm mg/dL (Negative) 04/21/23 19:40 Ur Leukocyte Esterase Negative (Negative) 04/21/23 19:40 Urine RBC 0-4 /hpf (0-2) H 04/21/23 19:40 Urine WBC 5-10 /hpf (0-5) H 04/21/23 19:40 Ur Squamous Epith Cells 0-4 /hpf (0-5) H 04/21/23 19:40 Amorphous Sediment Not Reportable 04/21/23 19:40 Urine Bacteria 3+ /hpf (NONE) H 04/21/23 19:40 Urine Mucus Trace /hpf 04/21/23 19:40 Discharge Plan Discharge Patient Disposition: Home Clinical Impression: Back pain, UTI (urinary tract infection) Condition: Stable Prescriptions: New cephalexin 500 mg capsule 500 mg PO QID 10 Days Qty: 40 0RF cyclobenzaprine 10 mg tablet 10 mg PO TID PRN (Reason: back pain) Qty: 20 0RF No Action estradiol 0.01 % (0.1 mg/gram) cream 2 g vaginal .2 times week Qty: 42.5 2RF hydrocodone-acetaminophen 10-325 mg tablet 1 tab PO Q8H PRN (Reason: Pain) nitroglycerin 0.4 mg tablet, sublingual 0.4 mg sublingual Q5M PRN (Reason: chest pain) Qty: 30 3RF Rx Instructions: do not exceed 3 doses per episode fluconazole [Diflucan] 150 mg tablet 150 mg PO DAILY Qty: 1 0RF levothyroxine 100 mcg tablet 100 mcg PO DAILY Qty: 90 1RF pantoprazole 40 mg tablet,delayed release (DR/EC) 40 mg PO DAILY paroxetine HCl 40 mg tablet 40 mg PO BEDTIME PNV cmb#95-ferrous fumarate-FA [] 28 mg iron- 800 mcg Tablet 1 tab PO DAILY melatonin 10 mg Tablet 10 mg PO BEDTIME PRN (Reason: Sleep) cyclobenzaprine 10 mg tablet 10 mg PO TID PRN (Reason: Muscle Spasm) Fosamax 70 mg tablet 70 mg PO Q7D Rx Instructions: ON SUNDAYS Ensure High Protein Liquid 1 ea PO BID PRN (Reason: CALORIES) amoxicillin-pot clavulanate 875-125 mg tablet 1 tab PO BID Qty: 14 0RF Discharge Orders: Discharge ED (Routine); Ordered 04/21/23 Ordered By: Eric Joyner Referrals: Melo Anderson Jr, DO [Primary Care Provider] - Discharge Diet: Usual diet Discharge Activity: Increase activity as tolerated Patient Instructions: Urinary Tract Infection in Women (ED), Acute Low Back Pain (ED), Opioid Safety Activity Restrictions/Additional Instructions: Thank you for visiting the emergency department. You were seen in the for back pain. The exact cause of your symptoms is unclear however we are pleased that you had improvement with treatment. You do have a urinary tract infection which will be treated with antibiotics. We will prescribe muscle relaxers. You may continue your pain medications. K eep in mind that you are hydrocodone contains 325 mg of acetaminophen in each tablet and this counts for total daily maximum. You may use [id number] medications such as acetaminophen and ibuprofen for pain however please do not exceed the daily recommended dosage as listed on the packaging and please keep in mind that many namebrand medications contain the same active ingredients. Please avoid these medications if previously instructed to do so by another physician due to other underlying medical condition. The radiology report notes advanced degenerative changes especially at the L4-L5 level which may relate to pain. Additionally they note mild prominence of the pancreatic duct with pancreas divisum morphology. Mass lesion in the pancreas is not appreciated. Consideration could be given to elective pancreas protocol MR to exclude mass lesion and serve as a baseline for future follow-up. This can be arranged by your primary care provider. Return for uncontrolled symptoms, any new neurologic symptoms such as loss of control of bowel or bladder or weakness of a lower extremity, or anything else that you are concerned about and feel needs emergency department evaluation. Coding Level of Care Code ED Railroad Watchman for Lyly Ratliff
[2023-04-21 19:27] LABS: Basophils % 0.6 %; Eosinophils # 0.1 10^3/uL (0.0-0.8); Eosinophils % 1.1 %; Hematocrit 40.5 % (37.0-47.0); Hemoglobin 13.4 g/dL (11.5-15.3); Lymphocytes # 1.4 10^3/uL (0.8-4.8); Lymphocytes % 21.3 %; Mean Corpuscular HGB Conc 33.1 g/dL (30.0-36.0); Mean Corpuscular Hemoglobin 30.8 pg (28.0-34.0); Mean Corpuscular Volume 93.1 fl (81-99); Mean Platelet Volume 8.3 fL (7.4-10.4); Monocytes # 0.5 10^3/uL (0.2-0.9); Monocytes % 6.9 %; Neutrophils # 4.62 10^3/uL (1.8-7.7); Neutrophils % 69.8 %; Nucleated Red Blood Cells % 0 %; Platelet Count 305 10^3/cmm (130-400); Red Blood Count 4.35 10^6/uL (4.1-5.3); Red Cell Distribution Width 13.5 % (12.1-15.1); White Blood Count 6.6 10^3/uL (4.0-10.0)
[2023-04-21 19:48] VITALS: BP 135/57; PULSE 72; RESP 20
[2023-04-21 19:48] LABS: Alanine Aminotransferase 12 U/L (0-33); Albumin Level 4.6 g/dL (3.5-5.2); Alkaline Phosphatase 80 U/L (35-105); Aspartate Amino Transferase 20 U/L (0-32); Blood Urea Nitrogen 13 mg/dL (6-20); Calcium 9.9 mg/dL (8.5-10.5); Carbon Dioxide 25 mmol/L (22-29); Chloride 102 mmol/L (98-107); Globulin 2.9 g/dL (1.3-4.6); Glomerular Filtration Rate 102.3 mL/min (90-130); Glucose 96 mg/dL (65-115); Lipase 27 U/L (13-60); Osmolality Calculated 290 mOsm/kg (285-295); Sodium 140 mmol/L (136-145); Total Bilirubin 0.2 mg/dL (0.15-1.2); Total Protein 7.5 g/dL (6.6-8.7)
[2023-04-21] MEDS: ketorolac 30 mg/mL INJ 15 MG IVP (19:49)
[2023-04-21 19:50] VITALS: RESP 20
[2023-04-21] MEDS: HYDROmorphone 1 mg/mL INJ 1 mL 0.5 MG IVP (19:50)
[2023-04-21 20:10] VITALS: BP 133/66; PULSE 74; RESP 18
[2023-04-21 20:10] LABS: Blood Urine 2+ (Negative); Glucose Urine UA Norm (Normal); Ketones Urine Negative (Negative); Nitrate Urine Positive (Negative); Protein Urine Neg (Negative); Urine Appearance Hazy (CLEAR); Urine Color Straw (Yellow); pH Urine 6 (5-7)
[2023-04-21 20:11] LABS: Add Urine Microscopic? YES; Bacteria Urine 3+ /hpf; Bilirubin Urine Neg (Negative); Leukocyte Esterase Urine Negative (Negative); Mucus Urine TRACE /hpf; RBC Urine 0-4 /hpf (0-2); Squamous Epithelial Cell Urine 0-4 /hpf (0-5); Urobilinogen Urine Norm (Negative)
[2023-04-21 20:12] LABS: Add Urine Culture? Yes
--- NOTE | 2023-04-21 20:14 | CTR_ITS ---
PROCEDURE INFORMATION: Exam: CT Abdomen And Pelvis With Contrast Exam date and time: 04/21/2023 8:32 PM Age: 58 years old Clinical indication: Abdominal pain; Right; Prior surgery; Surgery date: 6+ months; Surgery type: Csection; Patient HX: RT flank and back pain. Microhematuria. ; Additional info: R flank/back pain TECHNIQUE: Imaging protocol: Computed tomography of the abdomen and pelvis with contrast. Radiation optimization: All CT scans at this facility use at least one of these dose optimization techniques: automated exposure control; mA and/or kV adjustment per patient size (includes targeted exams where dose is matched to clinical indication); or iterative reconstruction. Contrast material: OMNI 350; Contrast volume: 75 ml; Contrast route: INTRAVENOUS (IV); REPORTING DATA: Count of CT and Cardiac NM exams in prior 12 months: This patient has received 3 known CTs and 0 known cardiac nuclear medicine studies in the 12 months prior to the current study. COMPARISON: CT abdomen pelvis wo con [id number] 06/28/2020 10:06 AM RADIATION DOSE METRICS: Total DLP (mGy-cm): 294.13 FINDINGS: Lungs: Clear basilar lung parenchyma. Pleural spaces: No pleural fluid. Heart: Normal heart size. Liver: Normal configuration. Homogeneous parenchyma. Gallbladder and bile ducts: No regional inflammation. No calcified stones. No ductal dilation. Pancreas: There is mild pancreatic ductal prominence. Pancreas divisum morphology noted. No pancreatic edema. No visible pancreatic mass. Spleen: Normal. No splenomegaly. Adrenal glands: Normal configuration. Kidneys and ureters: No evidence of obstruction. No visible inflammation. Stomach and bowel: Unremarkable. No obstruction. No mural thickening. Appendix: Normal appendix is confirmed. Intraperitoneal space: No free air. No significant fluid collection. Vasculature: Normal caliber arterial structures. Lymph nodes: No enlarged lymph nodes. Urinary bladder: Unremarkable as visualized. Reproductive: Prior hysterectomy. No evidence of vaginal cuff or adnexal mass. Bones/joints: There is mild dextroscoliosis at the thoracolumbar junction. Severe facet arthropathy is demonstrated at L4-L5 with 8 mm anterolisthesis of L4 on L5. Severe spinal stenosis noted at this level. There is mild to moderate bilateral neural foraminal stenosis, more severe on the right than on the left. Mild sacroiliac osteoarthritis. Moderate bilateral hip osteoarthritis. Soft tissues: Unremarkable. CT/CT abdomen pelvis w con* [id number] IMPRESSION: 1. No findings of urolithiasis to explain patient's flank pain. There is advanced degenerative change at the L4-L5 level which could contribute to neurogenic claudication and right greater than left radiculopathy. 2. There is mild prominence of the pancreatic duct with pancreas divisum morphology. Mass lesion in the pancreas is not appreciated. Consideration could be given to elective pancreas protocol MR to exclude mass lesion and serve as a baseline for future follow-up.
[2023-04-21] MEDS: cyclobenzaprine 10 mg Tablet PO (20:18)
[2023-04-21] MEDS: iohexol 350 mg/mL 500 mL Btl (per mL) IV (20:40)
[2023-04-21] MEDS: cefTRIAXone 1,000 MG in sodium chloride 0.9% (plus) 50 ML 100 MG IV (21:18)
[2023-04-21 21:19] VITALS: BP 127/66; PULSE 91; RESP 16; O2SAT 98
[2023-04-21 21:43] VITALS: BP 119/72; RESP 16; O2SAT 97
== END 2023-04-21 21:46 | disposition home or self-care (01) ==
PROVIDERS: Emergency Medicine; Emergency Provider Emergency Medicine; PCP Family Medicine
DX: N39.0 Urinary tract infection, site not specified (principal); M54.9 Dorsalgia, unspecified
CPT/HCPCS: 36415; 74177; 80053; 81001; 83690; 85025; 87077; 87086; 87186; 96365; 96375; 99285; J0696; J1170; J1885; Q9967

== ENCOUNTER 2023-11-11 20:55 | Emergency (ER) | payer MEDICARE, MEDICAID, SELFPAY ==
--- NOTE | 2023-11-11 20:56 | XRR_ITS ---
PROCEDURE INFORMATION: Exam: XR Left Shoulder Exam date and time: 11/11/2023 9:32 PM Age: 58 years old Clinical indication: Pain; Shoulder; Left; Additional info: Injury TECHNIQUE: Imaging protocol: Radiologic exam of the left shoulder. Views: 2 or more views. COMPARISON: CT neck w con* [id number] 05/18/2022 9:06 AM FINDINGS: Bones/joints: Osseous structures are intact. Negative for fracture or dislocation. Soft tissues: Normal. XR/XR shoulder LT min 2V* [id number] IMPRESSION: No acute findings.
[2023-11-11 21:17] VITALS: BP 141/86; PULSE 84; RESP 14; TEMP 36.7; O2SAT 97
--- NOTE | 2023-11-11 21:54 | W.ED.EXTPRO ---
HPI - Extremity Problem General: Chief complaint: Extremity Injury, Upper Stated complaint: left shoulder and arm injury Time Seen by Provider: 11/11/23 21:42 Source: patient Mode of arrival: ambulatory Limitations: no limitations History of Present Illness: 58-year-old female states she had lifted a heavy laundry basket this evening she felt a pop in her left arm had sudden left arm pain felt like the muscles drawing up in the left arm. States the pain is much worse with movement improved with rest she rates it a 6 out of 10 denies any other injuries. Associated symptoms: Deny chest pain, fever(s) or rash Review of Systems Const: Denies: fever(s) or chills ENMT: Denies: throat pain or dental pain Card: Denies: chest pain Resp: Denies: dyspnea GI: Denies: abdominal pain, nausea, vomiting or diarrhea Musc: Reports: extremity pain; Denies: neck pain or back pain Skin/Breast: Denies: rash Neuro: Denies: headache(s) PFSH ED PFSH: Medical History History of angina Hyperlipidemia, mixed Appetite absent Hearing loss of both ears Adult hypothyroidism Anxiety Surgical History History of ear surgery left ear cyst History of section History of hysterectomy with Left ovary removed History of colonoscopy 2014 [place] [facility] [place] Family History Mother Myocardial infarction Hypertension Family/Other Hx of CABG Mother and 6 siblings all had open heart surgery Hypertension Other Cancer Heart disease Hyperlipidemia Social History Smoking and tobacco/nicotine status: former use of tobacco/nicotine Second hand smoke exposure: No Alcohol intake: never Substance/Drug Use: never Adopted: No Caregiver/support person: No Lives independently: Yes Household members: spouse Housing: House Marital status: Number of children: 2 service: No Current occupational status: disabled Do you think of yourself as: Straight/Heterosexual Current gender identity: Female Physical Exam Const: COMMON NORMALS: no acute distress, patient oriented x3 and healthy appearing HENMT: COMMON NORMALS: normocephalic and atraumatic HEAD & SCALP: normocephalic and atraumatic Eye: COMMON NORMALS: conjunctivae normal CONJUNCTIVA: Yes conjunctivae normal Neck/C-Spine: COMMON NORMALS: full ROM and supple Chest: COMMONS NORMALS: normal inspection of the chest Resp: COMMON NORMALS: normal respiratory effort Cardio: COMMON NORMALS: regular rate, regular rhythm and No murmurs present (Cardio) RATE: regular rate RHYTHM: regular rhythm Extremity: NARRATIVE EXTREMITY EXAM: Tenderness to left upper arm with some swelling and her bicep likely bicep tendon rupture Neuro: COMMON NORMALS: patient oriented x3, moves all extremities and no focal motor deficits Psych: COMMON NORMALS: mental status grossly normal, Normal thought process present and cooperative THOUGHT PROCESS: Normal thought process present Skin: COMMON NORMALS: no rashes or lesions noted and no wounds GENERAL SKIN EXAM: no rashes or lesions noted Course Vital Signs: Vital signs: Vital Signs Temperature 98.0 F 11/11/23 21:17 Pulse Rate 84 11/11/23 21:17 Respiratory Rate 14 11/11/23 21:17 Blood Pressure 141/86 11/11/23 21:17 Pulse Oximetry 97 11/11/23 21:17 Oxygen Delivery Me thod Room Air 11/11/23 21:17 MDM - Extremity (Nontraumatic) Medical Decision Making Patient presents with left arm pain likely bicep tendon rupture we will prescribe pain meds we will place her in a sling she is to follow-up with orthopedics return if worsening she understands agrees to plan XR interpretation done by ED provider, pending radiology final review ED provider radiology interpretation(s): X-ray left shoulder no acute abnormality Discharge Plan Discharge Patient Disposition: Home Clinical Impression: Left upper arm injury Qualifiers: Encounter type: initial encounter Qualified Code(s): S49.92XA - Unspecified injury of left shoulder and upper arm, initial encounter Condition: Stable Prescriptions: New hydrocodone-acetaminophen 5-325 mg tablet 1 tab PO Q6H PRN (Reason: pain) Qty: 14 0RF No Action estradiol 0.01 % (0.1 mg/gram) cream 2 g vaginal .2 times week Qty: 42.5 2RF hydrocodone-acetaminophen 10-325 mg tablet 1 tab PO Q8H PRN (Reason: Pain) nitroglycerin 0.4 mg tablet, sublingual 0.4 mg sublingual Q5M PRN (Reason: chest pain) Qty: 30 3RF Rx Instructions: do not exceed 3 doses per episode fluconazole [Diflucan] 150 mg tablet 150 mg PO DAILY Qty: 1 0RF mupirocin 2 % ointment 1 applic topical BID Qty: 50 2RF Rx Instructions: apply to lesion and in each nostril bid for 3 weeks sulfamethoxazole-trimethoprim [Bactrim DS] 800-160 mg tablet 1 tab PO BID 10 Days Qty: 20 0RF levothyroxine 100 mcg tablet See Rx Instructions .ROUTE .COMPLEX Qty: 90 1RF Dose Instruction: TAKE ONE TABLET BY MOUTH DAILY Rx Instructions: TAKE ONE TABLET BY MOUTH DAILY pantoprazole 40 mg tablet,delayed release (DR/EC) 40 mg PO DAILY paroxetine HCl 40 mg tablet 40 mg PO BEDTIME PNV cmb#95-ferrous fumarate-FA [] 28 mg iron- 800 mcg Tablet 1 tab PO DAILY melatonin 10 mg Tablet 10 mg PO BEDTIME PRN (Reason: Sleep) cyclobenzaprine 10 mg tablet 10 mg PO TID PRN (Reason: Muscle Spasm) Fosamax 70 mg tablet 70 mg PO Q7D Rx Instructions: ON SUNDAYS Ensure High Protein Liquid 1 ea PO BID PRN (Reason: CALORIES) amoxicillin-pot clavulanate 875-125 mg tablet 1 tab PO BID Qty: 14 0RF cyclobenzaprine 10 mg tablet 10 mg PO TID PRN (Reason: back pain) Qty: 20 0RF Discharge Orders: Discharge ED (Routine); Ordered 11/11/23 Ordered By: Ethan Lin Referrals: Melo Anderson Jr, DO [Primary Care Provider] - Hai Sutton DO [Physician] - 4-7 days Discharge Diet: Advance as tolerated Discharge Activity: Resume usual activity Patient Instructions: Biceps Tendon Rupture Coding Level of Care Code ED Sole Skiver for Lyly Ratliff
[2023-11-11] MEDS: HYDROcodone-acetaminophen 5-325 mg Tablet 2 TAB PO (22:03)
--- NOTE | 2023-11-12 07:19 | DCPLANNER ---
Message sent to Ortho for a a follow up on injury to LT arm possible bicep tendon rupture.
== END 2023-11-11 22:09 | disposition home or self-care (01) ==
PROVIDERS: Emergency Provider Emergency Medicine; PCP Family Medicine
DX: S49.92XA Unspecified injury of left shoulder and upper arm, initial encounter (principal); Z87.891 Personal history of nicotine dependence; E78.2 Mixed hyperlipidemia; X50.0XXA Overexertion from strenuous movement or load, initial encounter
CPT/HCPCS: 73030; 99283

== ENCOUNTER → 2023-11-15 13:08 | Outpatient (BNVA) | payer MEDICARE, MEDICAID, SELFPAY | PROVIDERS: PCP Family Medicine; Referring Provider Emergency Medicine; Visit Provider Orthopaedic Surgery | DX: Z09 Encounter for follow-up examination after completed treatment for conditions other than malignant neoplasm (principal); M25.519 Pain in unspecified shoulder | CPT/HCPCS: 99203 ==

== ENCOUNTER 2023-12-06 11:19 | Outpatient (CLI) | payer MEDICARE, MEDICAID, SELFPAY ==
--- NOTE | 2023-12-06 11:45 | MR_ITS ---
WS: [id number] MRI LEFT SHOULDER NONCONTRAST TECHNIQUE: Sagittal T2, coronal T1, T2 and proton density imaging. Axial gradient PDE imaging. CLINICAL INFORMATION: shoulder pain COMPARISON: None. FINDINGS: Some images degraded by motion. Advanced degenerative arthritis at the AC joint. Mild downsloping acromion. Slight subacromial spurri ng. Impingement distal supraspinatus with narrowing of the subacromial space. Trace subacromial and s ubdeltoid fluid. Tendinopathy distal supraspinatus. Small undersurface and insertional tears distal s upraspinatus. No tendon retraction. Normal infraspinatus. Normal teres minor. Normal subscapularis tendon. Tiny biceps tendon remnant wit hin the bicipital groove likely due to chronic tear. Intra-articular biceps tendon appears intact. Ad vanced degenerative narrowing at the glenohumeral articulation with hypertrophic spurring about the h umeral head and neck. Chronic degenerative fraying of the glenoid labrum. Small subcoracoid effusion. No acute fractures. IMPRESSION: 1. Advanced degenerative arthritis AC joint with impingement on the distal supraspinatus. 2. Chronic thinning of the distal supraspinatus with tendinopathy and small intrasubstance tears ext ending to the insertion. No tendon retraction. 3. Rotator cuff is otherwise normal. 4. Tiny remnant biceps tendon within the bicipital groove likely due to chronic tear. 5. Advanced degenerative narrowing of the glenohumeral articulation with hypertrophic spurring along the medial humeral head and neck. 6. Chronic degenerative fraying of the glenoid labrum.
== END 2023-12-06 11:20 | disposition home or self-care (01) ==
LOC: RAD 11:20
PROVIDERS: PCP Family Medicine; Visit Provider Orthopaedic Surgery
DX: M25.519 Pain in unspecified shoulder (principal); M19.012 Primary osteoarthritis, left shoulder
CPT/HCPCS: 73221

== ENCOUNTER → 2024-01-07 07:53 | Outpatient (BNVA) | payer MEDICARE, MEDICAID, SELFPAY | PROVIDERS: PCP Family Medicine; Visit Provider Orthopaedic Surgery | DX: S46.219A Strain of muscle, fascia and tendon of other parts of biceps, unspecified arm, initial encounter (principal); X58.XXXA Exposure to other specified factors, initial encounter | CPT/HCPCS: 99213 ==

== ENCOUNTER → 2024-04-29 13:36 | Outpatient (BNVA) | payer MEDICARE, MEDICAID, SELFPAY | PROVIDERS: PCP Family Medicine; Visit Provider Nurse Practitioner Family | DX: R39.9 Unspecified symptoms and signs involving the genitourinary system (principal) | CPT/HCPCS: 81000; 87086 ==

== ENCOUNTER → 2024-05-12 16:49 | Outpatient (BNVA) | payer MEDICARE, MEDICAID, SELFPAY | PROVIDERS: PCP Family Medicine; Visit Provider Nurse Practitioner | DX: R30.0 Dysuria (principal) | CPT/HCPCS: 81000; 81003; 87086 ==

== ENCOUNTER 2024-07-09 11:54 | Emergency (ER) | payer MEDICARE, MEDICAID, SELFPAY ==
[2024-07-09 12:21] VITALS: BP 109/65; PULSE 73; RESP 18; TEMP 36.8; O2SAT 99; BMI 20.2
--- NOTE | 2024-07-09 12:25 | XR_ITS ---
WS: [id number] Exam: XR elbow RT min 3V* [id number] Date/Time of Exam: 07/09/2024 12:25 PM Reason For Exam: Nontraumatic elbow pain and swelling No fracture or dislocation. The joints are preserved. Mild spurring of the coronoid process of the ul na. Medial soft tissue swelling along the elbow. No obvious joint effusion. XR/XR elbow RT min 3V* [id number] IMPRESSION: 1. Medial soft tissue swelling.
--- NOTE | 2024-07-09 12:39 | ED_ITS ---
HPI - Extremity Problem General: Chief complaint: Extremity Problem,Nontraumatic Stated complaint: shoulder problems Time Seen by Provider: 07/09/24 12:23 History of Present Illness: 59-year-old female who presents to the e mergency room with right elbow pain that started yesterday. She has some swelling. Is not red. No known trauma. No fever. No warmth. Related Data Home Medications Medication Instructions Recorded Confirmed pantoprazole 40 mg tablet,delayed 40 mg PO DAILY 03/30/20 07/09/24 release paroxetine HCl 40 mg tablet 40 mg PO BEDTIME 03/30/20 07/09/24 alendronate 70 mg tablet (Fosamax) 70 mg PO Q7D 01/09/23 07/09/24 food supplemt, lactose-reduced 1 ea PO BID PRN CALORIES 01/09/23 07/09/24 (Ensure High Protein oral liquid) ibuprofen 800 mg tablet 800 mg PO TID 07/09/24 07/09/24 levothyroxine 100 mcg tablet 100 mcg PO DAILY 07/09/24 07/09/24 Previous Rx's Medication Instructions Recorded nitroglycerin 0.4 mg sublingual 0.4 mg sublingual Q5M PRN chest 05/22/22 tablet pain #30 tabs hydrocodone 5 mg-acetaminophen 325 1 tab PO Q6H PRN pain #14 tabs 11/11/23 mg tablet estradiol 0.01% (0.1 mg/gram) 2 g vaginal .2 times week #42.5 05/12/24 vaginal cream grams cephalexin 500 mg capsule 500 mg PO TID 7 days #21 caps 07/09/24 diclofenac sodium 50 mg 50 mg PO BID PRN pain #14 tabs 07/09/24 tablet,delayed release hydrocodone 5 mg-acetaminophen 325 1 tab PO Q8H PRN pain #14 tabs 07/09/24 mg tablet polyethylene glycol 3350 17 17 g PO DAILY #510 grams 07/09/24 gram/dose oral powder (Miralax) prednisone 20 mg tablet 40 mg (2 x 20 mg) PO DAILY 5 days 07/09/24 #10 tabs Allergies Allergy/AdvReac Type Severity Reaction Status Date / Time No Known Allergies Allergy Verified 05/12/24 16:35 Review of Systems Narrative: Constitutional symptoms: Negative except as documented in HPI. Skin symptoms: Negative except as documented in HPI. Eye symptoms: Negative except as documented in HPI. ENMT symptoms: Negative except as documented in HPI. Respiratory symptoms: Negative except as documented in HPI. Cardiovascular symptoms: Negative except as documented in HPI. Gastrointestinal symptoms: Negative except as documented in HPI. Genitourinary symptoms: Negative except as documented in HPI. Musculoskeletal symptoms: Negative except as documented in HPI. Neurologic symptoms: Negative except as documented in HPI. Psychiatric symptoms: Negative except as documented in HPI. Endocrine symptoms: Negative except as documented in HPI. PFSH ED PFSH: Medical History History of angina Hyperlipidemia, mixed Appetite absent Hearing loss of both ears Adult hypothyroidism Anxiety Surgical History History of ear surgery left ear cyst History of section History of hysterectomy with Left ovary removed History of colonoscopy 2013 at [facility] [place] Family History Mother Myocardial infarction Hypertension Family/Other Hx of CABG Mother and 6 siblings all had open heart surgery Hypertension Other Cancer Heart disease Hyperlipidemia Social History Smoking and tobacco/nicotine status: current every day tobacco/nicotine user cigarettes Packs smoked per day: 1 Years cigarettes smoked: 25 Second hand smoke exposure: No Alcohol intake: never Substance/Drug Use: never Adopted: No Caregiver/support person: No Lives independently: Yes Household members: spouse Housing: House Marital status: Number of children: 2 service: No Current occupational status: disabled Do you think of yourself as: Straight/Heterosexual Current gender identity: Female Physical Exam Narrative: EXAM NARRATIVE: General: Alert, no acute distress. Skin: warm and dry Head: Normocephalic Neck: Trachea midline Eye: Extraocular movements are intact. Ears, nose, mouth and throat: Oral mucosa moist Respiratory: Respirations are non-labored Musculoskeletal: Pain and some mild swelling on the ulnar side of the elbow. No redness. No warmth. Neurovascularly intact. Neurological: Alert and oriented, No focal neurological deficit observed. Psychiatric: Cooperative, appropriate mood & affect. Course Vital Signs: Vital signs: Vital Signs Temperature 98.3 F 07/09/24 12:21 Pulse Rate 73 07/09/24 12:21 Respiratory Rate 18 07/09/24 12:21 Blood Pressure 109/65 07/09/24 12:21 Pulse Oximetry 99 07/09/24 12:21 MDM - Extremity (Nontraumatic) Medical Decision Making X-ray of the right elbow: No fractures. There is some soft tissue swelling medially which was seen on exam. This was reviewed and interpreted by myself the emergency room physician. I also reviewed the radiology report. Assessment and plan: Elbow pain. ?Seems to be soft tissue in nature and not in the joint. Either inflammatory or infectious so we will treat both. IM Decadron and IM Toradol in the emergency room along with a [place]. - Discharged home - Discussed plan with patient. Answered any questions. - Evaluation and treatment of this problem were appropriate in the emergency setting. Lab Data Radiology Impressions Elbow X-Ray 07/09/24 12:25 IMPRESSION: 1. Medial soft tissue swelling. All radiology interpretation(s) finalized by discharge Discharge Plan Discharge Patient Disposition: Home Clinical Impression: Right elbow pain Condition: Stable Prescriptions: New hydrocodone-acetaminophen 5-325 mg tablet 1 tab PO Q8H PRN (Reason: pain) Qty: 14 0RF Rx Instructions: Take 1/2 to 1 tab every 8 hours as needed for pain prednisone 20 mg tablet 40 mg PO DAILY 5 Days Qty: 10 0RF cephalexin 500 mg capsule 500 mg PO TID 7 Days Qty: 21 0RF diclofenac sodium 50 mg tablet,delayed release (DR/EC) 50 mg PO BID PRN (Reason: pain) Qty: 14 0RF polyethylene glycol 3350 [Miralax] 17 gram/dose powder 17 g PO DAILY Qty: 510 0RF Rx Instructions: Take 1 scoop daily while taking pain medications. No Action nitroglycerin 0.4 mg tablet, sublingual 0.4 mg sublingual Q5M PRN (Reason: chest pain) Qty: 30 3RF Rx Instructions: do not exceed 3 doses per episode estradiol 0.01 % (0.1 mg/gram) cream 2 g vaginal .2 times week Qty: 42.5 2RF pantoprazole 40 mg tablet,delayed release (DR/EC) 40 mg PO DAILY paroxetine HCl 40 mg tablet 40 mg PO BEDTIME hydrocodone-acetaminophen 5-325 mg tablet 1 tab PO Q6H PRN (Reason: pain) Qty: 14 0RF levothyroxine 100 mcg tablet 100 mcg PO DAILY ibuprofen 800 mg Tablet 800 mg PO TID alendronate [Fosamax] 70 mg tablet 70 mg PO Q7D Rx Instructions: ON SUNDAYS Ensure High Protein Liquid 1 ea PO BID PRN (Reason: CALORIES) Discharge Orders: Discharge ED (Routine); Ordered 07/09/24 Ordered By: Zara Marc Referrals: Rashid Pabon DO [Physician] - 4-7 days (Call for an appointment if pain persists) Melo Anderson Jr, DO [Primary Care Provider] - Discharge Diet: Usual diet Discharge Activity: Increase activity as tolerated Patient Instructions: Opioid Safety, Pain Management Activity Restrictions/Additional Instructions: Thank you for choosing [facility] for your healthcare needs today. Please realize this is an emergency room and that we are providing you with a medical screening exam and this may not be complete and all inclusive of all the testing and or work up that you may need to determine your ailment or severity of your illness. You have been screened and evaluated and felt safe for discharge. Health conditions do change or evolve sometimes and as such it is important that you follow up with your Primary Doctor to be re checked, 3-5 days is a general good time frame for follow up. You are always welcome to return to the ED for re assessment if your symptoms are worsening or you have new concerns Coding Level of Care Code ED Exchange Administrator for Lyly Ratliff
[2024-07-09] MEDS: HYDROcodone-acetaminophen 5-325 mg Tablet 1 TAB PO (13:37)
[2024-07-09] MEDS: dexamethasone 10 mg/mL INJ IM (13:37)
[2024-07-09] MEDS: ketorolac 30 mg/mL INJ IM (13:37)
[2024-07-09 14:20] VITALS: BP 110/65; PULSE 72; O2SAT 98
== END 2024-07-09 14:21 | disposition home or self-care (01) ==
PROVIDERS: Emergency Provider Emergency Medicine; PCP Family Medicine
DX: M25.521 Pain in right elbow (principal)
CPT/HCPCS: 73080; 96372; 99284; J1100; J1885

== ENCOUNTER → 2024-07-28 12:11 | Outpatient (BNVA) | payer MEDICARE, MEDICAID, SELFPAY | PROVIDERS: PCP Family Medicine | DX: R39.9 Unspecified symptoms and signs involving the genitourinary system (principal); N39.0 Urinary tract infection, site not specified | CPT/HCPCS: 81000; 87077; 87086; 87184 ==

== ENCOUNTER → 2025-02-16 15:07 | Outpatient (BNVA) | payer MEDICARE, MEDICAID, SELFPAY | PROVIDERS: PCP Family Medicine; Visit Provider Nurse Practitioner | DX: L02.412 Cutaneous abscess of left axilla (principal) | CPT/HCPCS: 87070; 87077; 87184 ==

== ENCOUNTER 2025-03-16 05:00 | Outpatient (RCR) | payer MEDICARE, MEDICAID, SELFPAY | END 2025-04-15 23:59 | disposition home or self-care (01) | LOC: APT 05:00 | PROVIDERS: Visit Provider Orthopaedic Surgery | DX: S49.91XD Unspecified injury of right shoulder and upper arm, subsequent encounter (principal); X58.XXXD Exposure to other specified factors, subsequent encounter | CPT/HCPCS: 97161 ==

== ENCOUNTER 2025-03-24 12:36 | Emergency (ER) | payer MEDICARE, MEDICAID, SELFPAY ==
[2025-03-24 12:42] VITALS: BP 139/88; PULSE 75; TEMP 36.7; O2SAT 100
--- OUTSIDE RECORDS SUMMARY | 2025-03-24 12:43 | XMS_ITS | Patient Health Record ---
Author Organization [facility] Address [address] [place] [address] Care Team Providers Care Contaminated Land Consultant Name Role Phone Shawn Timmons Unavailable [phone] Reason For Referral No Information Medications Medication SIG (Take, Route, Frequency, Duration) Notes Start Date End Date Status Sertraline 100 MG Oral Tablet Sertraline 100 MG Oral Tablet 2 09/16/18 Active Alendronic acid 70 MG Oral Tablet [Fosamax] Alendronic acid 70 MG Oral Tablet [Fosamax] 2 09/16/18 Active tramadol hydrochloride 50 MG Oral Tablet tramadol hydrochloride 50 MG Oral Tablet 2 09/16/18 Active Loratadine Loratadine 2 09/16/18 Active rizatriptan rizatriptan 2 09/16/18 Active Omeprazole Omeprazole 2 09/16/18 Active Hydroxychloroquine Sulfate 200 MG Oral Tablet Hydroxychloroquine Sulfate 200 MG Oral Tablet 2 09/16/18 Active Plan Of Treatment No Information
--- OUTSIDE RECORDS SUMMARY | 2025-03-24 12:43 | XMS_ITS | Clinical Summary ---
Author Organization [facility] Address [address] [place] [address] Phone Care Team Providers Care Buyer Planner Name Role Phone Monica Medina DO Melo Henry Primary Care Provider Allergies No known active allergies Medications omeprazole (PRILOSEC) 20 mg Oral CpDR Take 20 mg by mouth daily. Active ranitidine (ZANTAC) 300 mg tablet Take 300 mg by mouth 2 times daily. Active vit-iron fumarate-FA ( S) 27-0.8 mg Tablet Take 1 Tab by mouth daily. Active PARoxetine HCl (PAXIL) 40 mg tablet Take 40 mg by mouth daily. Active THYROID, PORK, ORAL Take 1 Tablet by mouth daily. Active diazePAM (VALIUM) 5 mg tabletIndicatio ns:Neck strain, initial encounter Take 1 Tablet (5 mg) by mouth 3 times daily. For muscle spasm 30 Tablet 0 Active HYDROcodone-twin taminophen (NORCO) 5-325 mg tabletIndicatio ns:Neck strain, initial encounter Take 1 Tablet by mouth every 6 hours as needed for Pain. Max Daily Amount: 4 Tablets 15 Tablet 0 Active naloxone (NARCAN) 4 mg/spray [place], Non-Aerosol EMERGENCY USE ONLY: Administer 1 spray (4 mg) in one nostril one time. May repeat in alternating nostrils every 2-3 min until responsive or EMS arrives. 2 Each 3 0 Active Social History Tobacco Use Types Packs/Day Years Used Date Smoking Tobacco: Former Cigarettes Smokeless Tobacco: Never Alcohol Use Standard Drinks/Week Comments No 0 (1 standard drink = 0.6 oz pur e alcohol) Comments No Sex and Gender Information Value Date Recorded Sex Assigned at Not on file Legal Sex Female 11:11 AM ACCOUNT PROCESSOR Gender Identity Not on file Sexual Orientation Not on file Occupation Industry Job Start Date Job End Date Not on file Not on file Not on file Not on file Last Filed Vital Signs Vital Sign Reading Time Taken Comments Blood Pressure 110/79 07/26/2020 10:23 PM ACCOUNT PROCESSOR Pulse 64 07/26/2020 10:23 PM ACCOUNT PROCESSOR Temperature 36.8 C (98.3 F) 07/26/2020 2:36 PM ACCOUNT PROCESSOR Respiratory Rate 17 07/26/2020 10:2 3 PM ACCOUNT PROCESSOR Oxygen Saturation 95% 07/26/2020 10: 23 PM ACCOUNT PROCESSOR Inhaled Oxygen Concentration - - Weight 48.9 kg (107 lb 14.4 oz) 07/26/2020 2:36 PM ACCOUNT PROCESSOR Height 152.4 cm (5') 07/26/2020 2:36 PM ACCOUNT PROCESSOR Body Mass Index 21.07 07/26/2020 2:36 PM ACCOUNT PROCESSOR Plan of Treatment Health Maintenance Due Date Last Done Comments DTAP/TDAP/TD VACCINES (1 - Tdap) 02/09/1983 HPV/Cotest (21-29) 02/09/1985 CERVICAL CANCER SCREENING 02/09/1994 HPV/Cotest (30-65) 02/09/1994 PAP SMEAR 02/09/1994 BREAST CANCER SCREENING 2004 COLORECTAL SCREENING 02/09/2009 Colorectal Cancer Screening 02/09/2009 FIT-DNA Q 3 years 02/09/2009 FIT/FOBT Q 1 year 02/09/2009 Flex Sig/CT Colonography Q 5 years 02/09/2009 ZOSTER VACCINE (1 of 2) 02/09/2014 INFLUENZA VACCINE (#1) 2025 RSV VACCINE (60+ or ) (1 - 1-dose 75+ series) 02/09/2039 Insurance MEDICARE PART A AND B [place]ICAID [place] Advance Directives For more information, please contact: [phone] * Full Code (Latest Code Status on File) Date Activated Date Inactivated Comments 07/26/2020 10:24 PM 07/27/2020 1:02 AM Care Teams Buyer Planner Relationship Specialty Start Date End Date Melo Anderson Jr., DO [address] [place] [address] PCP - General Family Practice 11/18/12
--- OUTSIDE RECORDS SUMMARY | 2025-03-24 12:43 | XMS_ITS | Clinical Summary ---
Author Organization [facility] Address [address] [facility] Attn: Epic Prelude ADT [place] [id number] Care Team Providers Care Guest Experience Captain Name Role Phone Monica Medina DO, Richard E Primary Care Provider Allergies No known active allergies Medications naloxone (NARCAN) 4 mg/spray [place], Non-Aerosol EMERGENCY USE ONLY: Administer 1 spray (4 mg) in one nostril one time. May repeat in alternating nostrils every 2-3 min until responsive or EMS arrives. 2 Each 3 0 Active HYDROcodone-twin taminophen (NORCO) 5-325 mg tabletIndicatio ns:Neck strain, initial encounter Take 1 Tablet by mouth every 6 hours as needed for Pain. Max Daily Amount: 4 Tablets 15 Tablet 0 0 Active diazePAM (VALIUM) 5 mg tabletIndicatio ns:Neck strain, initial encounter Take 1 Tablet (5 mg) by mouth 3 times daily. For muscle spasm 30 Tablet 0 0 Active PARoxetine HCl (PAXIL) 40 mg tablet Take 40 mg by mouth daily. 0 Active THYROID, PORK, ORAL Take 1 Tablet by mouth daily. 0 Active Social History Tobacco Use Types Packs/Day Years Used Date Smoking Tobacco: Former Cigarettes Smokeless Tobacco: Never Alcohol Use Standard Drinks/Week Comments No 0 (1 standard drink = 0.6 oz pur e alcohol) Comments Unknown Sex and Gender Information Value Date Recorded Sex Assigned at Not on file Legal Sex Female 11:53 AM MANAGER COMPENSATION Gender Identity Not on file Sexual Orientation Not on file Last Filed Vital Signs Vital Sign Reading Time Taken Comments Blood Pressure 110/79 07/26/2020 10:23 PM MANAGER COMPENSATION Pulse 64 07/26/2020 10:23 PM MANAGER COMPENSATION Temperature 36.8 C (98.3 F) 07/26/2020 2:36 PM MANAGER COMPENSATION Respiratory Rate 17 07/26/2020 10:2 3 PM MANAGER COMPENSATION Oxygen Saturation - - Inhaled Oxygen Concentration - - Weight 48.9 kg (107 lb 14.4 oz) 07/26/2020 2:36 PM MANAGER COMPENSATION Height 152.4 cm (5') 07/26/2020 2:36 PM MANAGER COMPENSATION Body Mass Index 21.07 07/26/2020 2:36 PM MANAGER COMPENSATION Plan of Treatment Health Maintenance Due Date [...] ) (1 - 1-dose 75+ series) 02/09/2039 Care Teams Guest Experience Captain Relationship Specialty Start Date End Date Monica Medina, Melo Henry DO [address] [place] [id number] PCP - General Family Practice 11/18/12
--- NOTE | 2025-03-24 12:48 | XR_ITS ---
WS: [id number] Exam: XR shoulder RT min 2V* [id number] Date/Time of Exam: 03/24/2025 12:57 PM Reason For Exam: injury No acute fracture. 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 Normal soft tissues. XR/XR shoulder RT min 2V* [id number] IMPRESSION: 1. Mild DJD.
--- NOTE | 2025-03-24 13:18 | W.ED.EXTPRO ---
HPI - Extremity Problem General: Chief complaint: Extremity Injury, Upper Stated complaint: right shoulder pain Time Seen by Provider: 03/24/25 12:56 Source: patient Mode of arrival: ambulatory Limitations: no limitations History of Present Illness: 60yo female here with family for evaluation of right shoulder pain that has been ongoing for the past several weeks. Patient states that she does fall somewhat frequently. Last fall was a couple of weeks ago. States that she is not certain exactly how she fell. Reports that she is able to move the right arm some, but does have significant discomfort in the shoulder area. States that she did speak with her doctor who advised her to come to the emergency department for evaluation. Patient is right-hand dominant. She denies any other concerns at this time. Associated symptoms: Deny fever(s) Related Data Home Medications ?Medication ?Instructions ?Recorded ?Confirmed pantoprazole 40 mg tablet,delayed 40 mg PO DAILY 03/30/20 02/17/25 release paroxetine HCl 40 mg tablet 40 mg PO BEDTIME 03/30/20 02/17/25 alendronate 70 mg tablet (Fosamax) 70 mg PO Q7D 01/09/23 02/17/25 food supplemt, lactose-reduced 1 ea PO BID PRN CALORIES 01/09/23 02/17/25 (Ensure High Protein oral liquid) ibuprofen 800 mg tablet 800 mg PO TID 07/09/24 02/17/25 levothyroxine 100 mcg tablet 100 mcg PO DAILY 07/09/24 02/17/25 Previous Rx's ?Medication ?Instructions ?Recorded nitroglycerin 0.4 mg sublingual 0.4 mg sublingual Q5M PRN chest 05/22/22 tablet pain #30 tabs estradiol 0.01% (0.1 mg/gram) 2 g vaginal .2 times week #42.5 05/12/24 vaginal cream grams hydrocodone 5 mg-acetaminophen 325 1 tab PO Q8H PRN pain #14 tabs 07/09/24 mg tablet polyethylene glycol 3350 17 17 g PO DAILY #510 grams 07/09/24 gram/dose oral powder (Miralax) tizanidine 2 mg tablet 2 mg PO Q8H PRN muscle spasticity 03/24/25 #20 tabs Allergies Allergy/AdvReac Type Severity Reaction Status Date / Time No Known Allergies Allergy Verified 03/24/25 12:47 Review of Systems Const: Denies: fever(s), chills or body aches Musc: Reports: joint pain (Right shoulder) and limited range of motion (Right shoulder) PFSH ED PFSH: Medical History (Updated 03/24/25 @ 13:56 by IRINA Pugh) History of angina Hyperlipidemia, mixed Appetite absent Hearing loss of both ears Adult hypothyroidism Anxiety Surgical History History of ear surgery left ear cyst History of section History of hysterectomy with Left ovary removed History of colonoscopy 2014 at [facility] [place] Family History Mother Myocardial infarction Hypertension Family/Other Hx of CABG Mother and 6 siblings all had open heart surgery Hypertension Other Cancer Heart disease Hyperlipidemia Social History Smoking and tobacco/nicotine status: current every day tobacco/nicotine user (1/2 PPD) cigarettes Packs smoked per day: 1 Years cigarettes smoked: 25 Second hand smoke exposure: No Alcohol intake: never Substance/Drug Use: never Adopted: No Caregiver/support person: No Lives independently: Yes Household members: spouse Housing: House Marital status: Number of children: 2 service: No Current occupational status: disabled Do you think of yourself as: Straight/Heterosexual Current gender identity: Female Physical Exam Const: COMMON NORMALS: no acute distress, patient oriented x3, healthy appearing and alert GENERAL APPEARANCE: cooperative ORIENTATION/CONSCIOUSNESS: Yes awake OTHER: Patient is sitting upright in vertical flow recliner in no acute distress. She is able to give history with no difficulty. She is interactive with exam appropriately. Family is at bedside HENMT: COMMON NORMALS: normocephalic and atraumatic HEAD & SCALP: normocephalic and atraumatic Chest: CHEST: Yes Symmetrical chest wall rise Resp: COMMON NORMALS: normal respiratory effort EFFORT & INSPECTION: Yes able to speak in complete sentences Extremity: RIGHT UPPER EXTREMITY: Yes shoulder joint (TTP generalized ) Right shoulder: Yes Right shoulder joint inspection exam (No deformities, ecchymosis, or abrasions noted), Yes palpation, Yes Right shoulder joint ROM exam (decreased flexion, extension, abduction) and Yes Right shoulder joint neurovascular exam (+PMS) Neuro: COMMON NORMALS: patient oriented x3 SENSORIUM/ORIENTATION: Yes alert Psych: COMMON NORMALS: cooperative Course Vital Signs: Vital signs: Vital Signs Temperature 98.0 F 03/24/25 12:42 Pulse Rate 75 03/24/25 12:42 Blood Pressure 139/88 03/24/25 12:42 Pulse Oximetry 100 03/24/25 12:42 Oxygen Delivery Me thod Room Air 03/24/25 12:42 MDM - Extremity (Nontraumatic) Medical Decision Making 60yo female here with family for evaluation of right shoulder pain that has been ongoing for the past several weeks following a fall. Patient reports that she does fall somewhat frequently. She does have difficulty lifting her right arm above the level of her shoulder. Denies any other injury or concern at this time. Patient is nontoxic in appearance. Vital signs are stable. X-ray of the right shoulder reveals mild degenerative joint disease of the AC joint and glenohumeral joint. Discussed findings with patient and family. Advised this is likely a rotator cuff injury. Patient received ketorolac and tizanidine while in the emergency department. Discussed with patient the medications may help some with the discomfort, but physical therapy and orthopedist referral are needed. Short course tizanidine sent to patient's pharmacy. Advised to continue with [id number] ibuprofen, home hydrocodone, and prescribed tizanidine, sedation precautions provided. A referral has been placed to orthopedics for follow-up. Return precautions provided. Patient states understanding and has no further questions or concerns at this time. Lab Data Radiology Impressions Shoulder X-Ray 03/24/25 12:48 IMPRESSION: 1. Mild DJD. XR interpretation done by ED provider, pending radiology final review Discharge Plan Discharge Patient Disposition: Home Clinical Impression: Injury of right rotator cuff Qualifiers: Encounter type: initial encounter Qualified Code(s): S46.001A - Unspecified injury of muscle(s) and tendon(s) of the rotator cuff of right shoulder, initial encounter Condition: Stable Prescriptions: New tizanidine 2 mg tablet 2 mg PO Q8H PRN (Reason: muscle spasticity) Qty: 20 0RF Discontinued sulfamethoxazole-trimethoprim [Bactrim DS] 800-160 mg tablet 2 tab PO BID 7 Days Qty: 28 0RF hydrocodone-acetaminophen 5-325 mg tablet 1 tab PO Q6H PRN (Reason: pain) Qty: 14 0RF diclofenac sodium 50 mg tablet,delayed release (DR/EC) 50 mg PO BID PRN (Reason: pain) Qty: 14 0RF No Action nitroglycerin 0.4 mg tablet, sublingual 0.4 mg sublingual Q5M PRN (Reason: chest pain) Qty: 30 3RF Rx Instructions: do not exceed 3 doses per episode estradiol 0.01 % (0.1 mg/gram) cream 2 g vaginal .2 times week Qty: 42.5 2RF pantoprazole 40 mg tablet,delayed release (DR/EC) 40 mg PO DAILY paroxetine HCl 40 mg tablet 40 mg PO BEDTIME levothyroxine 100 mcg tablet 100 mcg PO DAILY ibuprofen 800 mg Tablet 800 mg PO TID hydrocodone-acetaminophen 5-325 mg tablet 1 tab PO Q8H PRN (Reason: pain) Qty: 14 0RF Rx Instructions: Take 1/2 to 1 tab every 8 hours as needed for pain polyethylene glycol 3350 [Miralax] 17 gram/dose powder 17 g PO DAILY Qty: 510 0RF Rx Instructions: Take 1 scoop daily while taking pain medications. alendronate [Fosamax] 70 mg tablet 70 mg PO Q7D Rx Instructions: ON SUNDAYS Ensure High Protein Liquid 1 ea PO BID PRN (Reason: CALORIES) Discharge Orders: Discharge ED (Routine); Ordered 03/24/25 Ordered By: Bernabe Palafox Referrals: Melo Anderson Jr, DO [Primary Care Provider, [facility]] Discharge Diet: Usual diet Discharge Activity: Increase activity as tolerated Patient Instructions: Rotator Cuff Injury (ED), Rotator Cuff Injury Exercises (DC), Opioid Safety, Pain Management, Patient Portal & Leyla Instructions Activity Restrictions/Additional Instructions: Degenerative joint disease noted on the x-ray of the right shoulder, no acute bony abnormalities noted Tizanidine has been sent to the pharmacy to help with the discomfort. You may also use [id number] ibuprofen Please see provided handout with information about rotator cuff injury as well as rotator cuff exercises A referral has been placed to orthopedics for follow-up of the rotator cuff injury. Please follow-up as soon as possible You may also follow-up with primary care for further evaluation. Return to the emergency department if any further injury, rapid worsening symptoms, and as needed Print Language: [place] Coding Level of Care Code ED All Around Gear Machine Operator for Lyly Ratliff
[2025-03-24 14:12] VITALS: BP 133/75; PULSE 66; O2SAT 99
--- NOTE | 2025-03-25 07:46 | DCPLANNER ---
messaged ortho for er f/u
== END 2025-03-24 14:13 | disposition home or self-care (01) ==
PROVIDERS: Emergency Provider Nurse Practitioner; PCP Family Medicine
DX: S46.001A Unspecified injury of muscle(s) and tendon(s) of the rotator cuff of right shoulder, initial encounter (principal); F17.210 Nicotine dependence, cigarettes, uncomplicated; E78.2 Mixed hyperlipidemia; W19.XXXA Unspecified fall, initial encounter
CPT/HCPCS: 73030; 96372; 99284; J1885; J9999

== ENCOUNTER → 2025-04-01 14:30 | Outpatient (BNVA) | payer MEDICARE, MEDICAID, SELFPAY | PROVIDERS: PCP Family Medicine; Visit Provider Orthopaedic Surgery | DX: S49.91XA Unspecified injury of right shoulder and upper arm, initial encounter (principal); M25.511 Pain in right shoulder; X58.XXXA Exposure to other specified factors, initial encounter | CPT/HCPCS: 73030; 99213 ==

== ENCOUNTER → 2025-08-16 12:07 | Outpatient (BNVA) | payer MEDICARE, MEDICAID, SELFPAY | PROVIDERS: Visit Provider Nurse Practitioner | DX: E55.9 Vitamin D deficiency, unspecified (principal); E78.2 Mixed hyperlipidemia | CPT/HCPCS: 80053; 80061; 82306; 82670 ==

== ENCOUNTER 2025-08-20 14:37 | Outpatient (CLI) | payer MEDICARE, MEDICAID, SELFPAY ==
--- NOTE | 2025-08-20 15:00 | XR_ITS ---
WS: [id number] DEXA (DUAL ENERGY X-RAY ABSORPTIOMETRY) Bone mineral density was performed using a [employer] machine. HISTORY: Z78.0 - Asymptomatic menopausal state COMPARISON: 02/15/2021 Lumbar spine BMD (L1-L4): 0.879 g/cm2 T score: -2.5 Z score: -0.6 Total hip BMD: Left: 0.803 g/cm2. T score: -1.6 Z score: -0.2 Right: 0.819 g/cm2. T score: -1.5 Z score: 0.0 10 year probability of a major osteoporotic fracture is 10.8%. Compared to the prior study from 02/15/2021. Lumbar spine bone mineral density has decreased by 4.7%. Bilateral hips bone mineral density has decreased by 3.6%. XR/XR DEXA axial skeleton* [id number] IMPRESSION: OSTEOPOROSIS based upon the WHO classification for females. Significant decrease in bone mineral density within the lumbar spine and hips s mario the prior study.
== END 2025-08-20 14:38 | disposition home or self-care (01) ==
LOC: RAD 14:38
PROVIDERS: Visit Provider Nurse Practitioner
DX: Z13.820 Encounter for screening for osteoporosis (principal); Z78.0 Asymptomatic menopausal state; M81.0 Age-related osteoporosis without current pathological fracture
CPT/HCPCS: 77080